=== PATIENT | female | born 1970 | race Caucasian/White ===

== ENCOUNTER 2020-12-18 10:38 | Outpatient (REF) | payer MEDICARE, MEDICAID, SELFPAY ==
[2020-12-19 12:01] LABS: H Pylori Breath Test NOT DETECTED (NOT DETECTED)
== END 2020-12-18 10:39 | disposition home or self-care (01) ==
LOC: HO.LNP 10:38
PROVIDERS: PCP Physician Assistant Medical; Referring Provider Physician Assistant Medical; Visit Provider Physician Assistant
DX: Z01.812 Encounter for preprocedural laboratory examination (principal); E66.01 Morbid (severe) obesity due to excess calories; I10 Essential (primary) hypertension; E03.9 Hypothyroidism, unspecified; I89.0 Lymphedema, not elsewhere classified; F32.9 Major depressive disorder, single episode, unspecified; M79.7 Fibromyalgia; M19.90 Unspecified osteoarthritis, unspecified site; K21.9 Gastro-esophageal reflux disease without esophagitis
CPT/HCPCS: 83013; 99202; 99211

== ENCOUNTER → 2021-01-24 08:10 | Outpatient (BNVA) | payer MEDICARE, MEDICAID, SELFPAY | PROVIDERS: PCP Physician Assistant Medical; Visit Provider Dietitian, Registered | DX: E66.01 Morbid (severe) obesity due to excess calories (principal) | CPT/HCPCS: 97802 ==

== ENCOUNTER → 2021-02-09 14:55 | Outpatient (BNVA) | payer MEDICARE, MEDICAID, SELFPAY | PROVIDERS: PCP Physician Assistant Medical; Visit Provider Physician Assistant | DX: E66.01 Morbid (severe) obesity due to excess calories (principal); Z68.43 Body mass index [BMI] 50.0-59.9, adult | CPT/HCPCS: 99212 ==

== ENCOUNTER 2021-03-06 09:50 | Outpatient (REF) | payer MEDICARE, MEDICAID, SELFPAY ==
--- NOTE | ~2021-03-06 | XR_ITS ---
EXAMINATION: XR CHEST CLINICAL INFORMATION: Encounter for preprocedural laboratory examination COMPARISON: Chest x-ray 09/13/2006, dictated report. Images not available for review. TECHNIQUE: 2 views of the chest were obtained. FINDINGS: No significant abnormality is noted involving the heart, lungs, mediastinum, bony thorax or soft tissues. XR/XR chest 2V IMPRESSION: Unremarkable examination.
--- NOTE | 2021-03-06 09:58 | ECG_ITS ---
Test Reason : preop Blood Pressure : / mmHG Vent. Rate : 075 BPM Atrial Rate : 075 BPM P-R Int : 164 ms QRS Dur : 088 ms QT Int : 408 ms P-R-T Axes : 043 031 051 degrees QTc Int : 455 ms Normal sinus rhythm Nonspecific T wave abnormality Inferior leads Lateral leads Abnormal ECG No previous ECGs available Referred By: Fatmata Alves Electronically Signed By:MARLEEN LOYA MD
[2021-03-06 10:26] LABS: MANUAL DIFF FLAG NO
[2021-03-06 10:50] LABS: Basophils Absolute Auto 0.1 X10*3/uL (0.0-0.2); Eosinophils Absolute Auto 0.2 X10*3/uL (0.0-0.4); Eosinophils Percent Auto 2.7 % (0-4); Hematocrit 38.8 % (37.0-47.0); Hemoglobin 12.8 g/dl (12.0-16.0); Imm Gran Abs Auto 0.01 X10*3/uL (0.00-0.03); Imm Gran Pct Auto 0.1 % (0.0-0.4); Lymphocytes Absolute Auto 2.1 X10*3/uL (1.2-4.9); Lymphocytes Percent Auto 29.2 % (20-40); Mean Corpuscular Hemoglobin 29.6 pg (27.0-33.0); Mean Corpuscular Volume 89.8 fL (80.0-98.0); Mean Platelet Volume 8.8 fL (9.4-12.3); Monocytes Absolute Auto 0.4 X10*3/uL (0.1-1.2); Monocytes Percent Auto 5.3 % (2-11); Neutrophils Absolute Auto 4.4 x10*3/uL (2.0-8.3); Neutrophils Percent Auto 61.7 % (45-73); Platelet Count 325 X10*3/uL (160-400); Red Blood Count 4.32 X10*6/uL (4.20-5.50); Red Cell Distribution Width 13.4 % (11.0-16.0); White Blood Count 7.2 X10*3/uL (4.8-10.8)
[2021-03-06 10:59] LABS: Estimated Average Glucose 123 mg/dL; Hemoglobin A1C 132.3317 umol/L; Hemoglobin A1c % 5.9 %
[2021-03-06 11:18] LABS: Alanine Aminotransferase 25 U/L (0-31); Albumin Level 4.3 g/dL (3.5-5.0); Alkaline Phosphatase 69 U/L (39-117); Anion Gap 14 (12-20); Aspartate Amino Transferase 19 U/L (5-31); Bilirubin Total 0.3 mg/dL (0.0-1.0); Blood Urea Nitrogen 12 mg/dL (9-16); C Reactive Protein 0.71 mg/dL (< or = 0.50); Calcium 9.4 mg/dL (8.4-10.2); Carbon Dioxide 27 mmol/L (22-29); Chloride 101 mmol/L (96-108); Cholesterol 279 mg/dL; Estimated Glomerular Filt Rate > 60; Glucose Random 103 mg/dL (60-115); HDL Cholesterol 43 mg/dL; Iron 60 mcg/dL (30-160); LDL Cholesterol Calculated 187 mg/dl; Percent Iron Saturation 15 % (15-50); Potassium 4.6 mmol/L (3.3-5.1); Sodium 137 mmol/L (135-145); Total Iron Binding Capacity 404 mcg/dL (228-428); Total Protein 7.1 g/dL (6.5-8.0); Triglycerides 245 mg/dL; Unsaturated Iron Binding 344 ug/dL
[2021-03-06 11:27] LABS: Insulin 12 uU/mL (2-29)
[2021-03-06 11:33] LABS: Ferritin 57 ng/mL (10-250); TSH reflex Free T4 12.92 uIU/mL (0.32-4.0); Vitamin D 25-OH Total 37.1 ng/mL (>30)
[2021-03-06 14:45] LABS: Folate 18.3 ng/mL (> or = 4.0); Vitamin B12 677 pg/mL (200-900)
[2021-03-08 02:57] LABS: Calcium (PTHI) 9.5 mg/dL (8.6-10.2); PTHI 45 pg/mL (14-64)
[2021-03-09 14:11] LABS: Zinc 71 mcg/dL (60-130)
[2021-03-10 11:11] LABS: Vitamin B1 25 nmol/L (8-30)
[2021-03-12 03:31] LABS: Vitamin A 59 mcg/dL (38-98)
== END 2021-03-06 09:51 | disposition home or self-care (01) ==
LOC: HO.XRAY 09:50
PROVIDERS: Visit Provider Physician Assistant
DX: Z01.812 Encounter for preprocedural laboratory examination (principal); E66.01 Morbid (severe) obesity due to excess calories
CPT/HCPCS: 36415; 71046; 80053; 80061; 82306; 82607; 82728; 82746; 83036; 83525; 83540; 83970; 84425; 84439; 84443; 84590; 84630; 85025; 86140; 93005

== ENCOUNTER → 2021-03-09 08:11 | Outpatient (BNVA) | payer MEDICARE, MEDICAID, SELFPAY | PROVIDERS: PCP Physician Assistant Medical; Visit Provider Physician Assistant | DX: Z13.89 Encounter for screening for other disorder (principal) | CPT/HCPCS: Q3014 ==

== ENCOUNTER → 2021-07-16 11:04 | Outpatient (BNVA) | payer MEDICARE, MEDICAID, SELFPAY | PROVIDERS: PCP Physician Assistant Medical; Visit Provider Physician Assistant | DX: E66.01 Morbid (severe) obesity due to excess calories (principal); K21.9 Gastro-esophageal reflux disease without esophagitis; I10 Essential (primary) hypertension; E03.9 Hypothyroidism, unspecified; M79.7 Fibromyalgia; I89.0 Lymphedema, not elsewhere classified; R94.31 Abnormal electrocardiogram [ECG] [EKG]; R63.2 Polyphagia; Z68.43 Body mass index [BMI] 50.0-59.9, adult | CPT/HCPCS: 99212; Q3014 ==

== ENCOUNTER → 2021-08-07 15:30 | Outpatient (BNVA) | payer MEDICARE, MEDICAID, SELFPAY | PROVIDERS: PCP Physician Assistant Medical; Visit Provider Counselor Mental Health | DX: F32.0 Major depressive disorder, single episode, mild (principal); F50.81 Binge eating disorder | CPT/HCPCS: 90834 ==

== ENCOUNTER 2024-02-22 15:50 | Emergency (ER) | payer OTHER, SELFPAY ==
[2024-02-22 15:52] VITALS: BP 146/46; PULSE 90; RESP 18; TEMP 36.2; O2SAT 95; BMI 53.5
--- NOTE | 2024-02-22 15:54 | ED.GENADULT ---
HPI - General Adult General Chief complaint: Ear Problems Stated complaint: LT ear pain, headache Time Seen by Provider: 02/22/24 16:04 Source: patient and RN notes reviewed Mode of arrival: ambulatory Limitations: no limitations History of Present Illness ED Provider: Daphney Gong PA-C HPI narrative: This is a 53-year-old female, with a history of hypothyroidism, hypertension, who presents emergency department with complaints of left ear pain x4 days. Patient reports that she has a history of ear infections with perforation and symptoms feel similar. No recent swimming. Reports drainage to her left ear as well as decreased hearing from the left ear. No fevers, chills, chest pain, shortness breath, abdominal pain, nausea, vomiting or diarrhea. No other complaints or concerns at this time. MD complaint: Left ear pain Onset (ago): day(s) Radiation: non-radiation Quality: aching Pain Consistency: constant Relieving factors: none Exacerbating factors: none Associated symptoms: denies other symptoms Treatments prior to arrival: none Related Data Home Medications ?Medication ?Instructions ?Recorded ?Confirmed cetirizine 10 mg tablet 10 mg PO DAILY PRN 09/04/20 07/16/21 duloxetine 30 mg capsule,delayed 30 mg PO DAILY 09/04/20 07/16/21 release duloxetine 60 mg capsule,delayed 60 mg PO DAILY 09/04/20 07/16/21 release gabapentin 600 mg tablet 600 mg PO BID 09/04/20 07/16/21 tramadol 50 mg tablet 50 mg PO BID PRN 09/04/20 07/16/21 valsartan 40 mg tablet 20 mg PO DAILY 09/04/20 07/16/21 cholecalciferol (vitamin D3) 125 125 mcg PO DAILY 12/18/20 07/16/21 mcg (5,000 unit) capsule levothyroxine 200 mcg tablet mcg PO 12/18/20 07/16/21 metformin 500 mg tablet,extended 500 mg PO DAILY 02/09/21 07/16/21 release 24 hr multivitamin 1 tab PO DAILY 07/16/21 07/16/21 Previous Rx's ?Medication ?Instructions ?Recorded amoxicillin 875 mg tablet 875 mg PO BID 7 days #14 tabs 02/22/24 ofloxacin 0.3 % ear drops 10 drp otic (ears) DAILY 7 days 02/22/24 #10 mL Allergies Allergy/AdvReac Type Severity Reaction Status Date / Time latex [LATEX] Allergy Mild RASH Verified 02/22/24 15:54 Sulfa (Sulfonamide Allergy Unknown ANAPHYLAXIS Verified 02/22/24 15:54 Antibiotics) [SULFA (SULFONAMIDE ANTIBIOTICS)] Review of Systems Review of Systems: Yes all other systems are reviewed and are negative Constitutional: Constitutional: Reports as per [facility] Past Medical History Attestation statement: The following information was validated with the patient. Medical History Gastric peptic ulcer Pancreatitis Gastroparesis Lyme disease Surgical History History of laparoscopic cholecystectomy Hx of neck surgery Hx of colonoscopy History of tonsillectomy and adenoidectomy Family History Family History Mother No problems noted. Father No problems noted. Brother No problems noted. Sister No problems noted. Sister No problems noted. Sister No problems noted. Social History Social History Alcohol intake: current Alcohol intake frequency: holidays/special occasions only Patient Tobacco Use Status: Former Tobacco user Advance Directives: Yes Advance Directives Information Provided: No Advance Directives on File: No Do you have a plan to hurt others: No Plan Physical Exam ED Vital Signs: Vital Signs - 24 hr 02/22/24 15:52 02/22/24 16:11 Temperature 97.1 F 97.1 F Pulse Rate 90 90 Respiratory Rate 18 18 Blood Pressure 146/46 H 146/46 H Pulse Oximetry 95 95 Oxygen Delivery Method Room Air Room Air BMI result Body Mass Index 53.5 Const General: cooperative, comfortable and no acute distress Orientation/consciousness: patient oriented x3 Limitations: no limitations HENMT Other: Left ear: Canal erythema and edema, with purulent discharge noted. TM appears to be intact, slightly erythematous, however full visualization is obscured due to swelling. Patient with tenderness palpation overlying the preauricular lymph nodes. No mastoid tenderness, erythema or fluctuance. Right ear unremarkable Head: Yes normal to inspection, Yes normocephalic and Yes atraumatic Ears: TM normal on the right General nose exam: Normal external nose present Face and sinus: Yes normal facial exam Mouth: Normal oral and palatal mucosa present, oropharynx normal and moist mucous membranes Throat: Yes posterior oropharynx normal Eyes General: appearance normal, both eyes and all related structures Eyelids: Yes eyelids normal Conjunctivae: conjunctivae normal Sclerae: sclerae normal Pupils: Equal, round and reactive pupils present EOM: EOMs intact bilaterally Neck Neck: Yes normal visual inspection, Yes full ROM and Yes no lymphadenopathy Lymphatic: no lymphadenopathy noted Chest Chest palpation & inspection: normal inspection of the chest Resp Effort & Inspection: normal respiratory effort and able to speak in complete sentences Auscultation: clear to auscultation bilaterally, no crackles, no rales, no rhonchi and no wheezes Cardio Rate: regular rate Rhythm: regular rhythm Heart sounds: S1 normal heart sound present and S2 normal heart sound present GI Inspection: Yes normal to inspection Skin General skin exam: no rashes or lesions noted Trauma: no lacerations or abrasions Wounds: no wounds Neuro General: patient oriented x3 and moves all extremities Cranial nerves: Yes Equal, round and reactive pupils present Extrem General: Yes normal to inspection Right upper extremity: normal to inspection Left upper extremity: normal to inspection Right lower extremity: normal to inspection Left lower extremity: normal to inspection Medical Decision Making Medical Decision Making MDM Narrative: This is a 53-year-old female who presents emergency department with complaints of left ear pain x4 days. On arrival, blood pressure mildly elevated 146/46. Patient has evidence of otitis media/otitis externa, will treat with antibiotics oral and topical to treat for both. Patient given strict return precautions. She understands agrees with plan. Patient stable for discharge. Differential Diagnosis Differential Diagnoses: The differential diagnosis associated with the presentation includes Otitis media, externa, cerumen impaction, TM perforation, mastoiditis-unlikely Discharge Plan Discharge Clinical Impression: Acute otitis externa of left ear Patient Disposition: Home, Self-Care Instructions: Otitis Externa (ED) Additional Instructions: You were seen in the emergency department due to left ear pain. You have evidence of an ear infection. Please take prescribed antibiotic as directed. Finish the entire course even if your symptoms improve. I am also putting you on topical ear drops to also help with your symptoms. Please use as prescribed. If any new or worsening symptoms occur including but not limited to worsening pain, swelling, severe headache, dizziness, chest pain, please seek emergent care Prescriptions: New amoxicillin 875 mg tablet 875 mg PO BID 7 Days Qty: 14 0RF ofloxacin 0.3 % drops 10 drp otic (ears) DAILY 7 Days Qty: 10 0RF No Action gabapentin 600 mg tablet 600 mg PO BID tramadol 50 mg tablet 50 mg PO BID PRN valsartan 40 mg tablet 20 mg PO DAILY duloxetine 30 mg capsule,delayed release(DR/EC) 30 mg PO DAILY duloxetine 60 mg capsule,delayed release(DR/EC) 60 mg PO DAILY cetirizine 10 mg tablet 10 mg PO DAILY PRN levothyroxine 200 mcg tablet PO cholecalciferol (vitamin D3) 125 mcg (5,000 unit) capsule 125 mcg PO DAILY metformin 500 mg tablet extended release 24 hr 500 mg PO DAILY multivitamin Tablet 1 tab PO DAILY Interventions: ED Discharge Assessment Last Done: 02/22/24 16:11 Discharge Date/Time: 02/22/24 16:12 Print Language: Panamanian
[2024-02-22 16:11] VITALS: BP 146/46; PULSE 90; RESP 18; TEMP 36.2; O2SAT 95
== END 2024-02-22 16:12 | disposition home or self-care (01) ==
PROVIDERS: Emergency Provider Emergency Medicine Emergency Medical Services; PCP Physician Assistant Medical
DX: H60.502 Unspecified acute noninfective otitis externa, left ear (principal); H92.02 Otalgia, left ear; R51.9 Headache, unspecified; I10 Essential (primary) hypertension; Z79.899 Other long term (current) drug therapy; Z87.891 Personal history of nicotine dependence
CPT/HCPCS: 99282

== ENCOUNTER 2024-04-09 14:19 | Emergency (ER) | payer OTHER, SELFPAY ==
[2024-04-09 14:26] VITALS: BP 154/66; PULSE 80; RESP 20; TEMP 36.2; O2SAT 99; BMI 52.3
--- NOTE | 2024-04-09 14:27 | ED.GENADULT ---
HPI - General Adult General Chief complaint: Upper Respiratory Symptoms Stated complaint: swollen glands, sore throat Time Seen by Provider: 04/09/24 16:58 Source: patient Mode of arrival: ambulatory Limitations: no limitations History of Present Illness ED Provider: Maribel Tiwari PA-C HPI narrative: Patient is a 53 year old assigned female at with a history of GERD, HTN, and fibromyalgia presenting to the emergency department today with a sore throat and feeling generally unwell. Patient states that over the last 5 days she has felt generally unwell with a sore throat. Patient states that she does not have any tonsils. Patient denies any dizziness, lightheadedness, abdominal pain, nausea, vomiting, fever, chills, blurry vision, double vision, loss of vision, chest pain, difficulty breathing, shortness of breath, back pain, night sweats, pain with urination, increased urinary frequency, increased urinary urgency, blood in her urine or stool, syncope or a near syncopal episode, recent trauma or falls, bowel incontinence, bladder incontinence, or any other complaints at this time. Onset (ago): day(s) (5) Relieving factors: none Exacerbating factors: none Associated symptoms: denies other symptoms Treatments prior to arrival: none Related Data Home Medications ?Medication ?Instructions ?Recorded ?Confirmed cetirizine 10 mg tablet 10 mg PO DAILY PRN 09/04/20 07/16/21 duloxetine 30 mg capsule,delayed 30 mg PO DAILY 09/04/20 07/16/21 release duloxetine 60 mg capsule,delayed 60 mg PO DAILY 09/04/20 07/16/21 release gabapentin 600 mg tablet 600 mg PO BID 09/04/20 07/16/21 tramadol 50 mg tablet 50 mg PO BID PRN 09/04/20 07/16/21 valsartan 40 mg tablet 20 mg PO DAILY 09/04/20 07/16/21 cholecalciferol (vitamin D3) 125 125 mcg PO DAILY 12/18/20 07/16/21 mcg (5,000 unit) capsule levothyroxine 200 mcg tablet mcg PO 12/18/20 07/16/21 metformin 500 mg tablet,extended 500 mg PO DAILY 02/09/21 07/16/21 release 24 hr multivitamin 1 tab PO DAILY 07/16/21 07/16/21 Previous Rx's ?Medication ?Instructions ?Recorded amoxicillin 875 mg tablet 875 mg PO BID 7 days #14 tabs 02/22/24 ofloxacin 0.3 % ear drops 10 drp otic (ears) DAILY 7 days 02/22/24 #10 mL Allergies Allergy/AdvReac Type Severity Reaction Status Date / Time latex [LATEX] Allergy Mild RASH Verified 04/09/24 14:28 Sulfa (Sulfonamide Allergy Unknown ANAPHYLAXIS Verified 04/09/24 14:28 Antibiotics) [SULFA (SULFONAMIDE ANTIBIOTICS)] Review of Systems Constitutional: Constitutional: Reports no additional constitutional complaints, Denies chills, Denies fever(s) and Denies night sweats Eyes: Eyes: Reports no additional eye complaints, Denies blurry vision, Denies change in vision, Denies diplopia, Denies eye discharge, Denies loss of vision and Denies eye pain ENT: Denies dizziness and Reports sore throat Cardiovascular: Cardiovascular: Reports no additional cardiovascular complaints, Denies chest pain, Denies lightheadedness, Denies Loss of Consciousness and Denies dyspnea Respiratory: Respiratory: Reports no additional respiratory complaints and Denies dyspnea Gastrointestinal: Gastrointestinal: Reports no additional gastrointestinal complaints, Denies abdominal pain, Denies melena, Denies hematochezia, Denies change in bowel habits and Denies change in stool character Genitourinary: Genitourinary: Denies hematuria, Denies urinary frequency, Denies dysuria, Denies urinary incontinence, Denies urinary hesitancy and Denies urinary urgency Musculoskeletal: Musculoskeletal: Reports no additional musculoskeletal complaints, Denies numbness and Denies tingling Neurologic: Denies dizziness, Denies loss of vision, Denies numbness and Denies tingling Psychiatric: Psychiatric: Reports no additional psychiatric complaints Endocrine: Endocrine: Reports no additional endocrine complaints Hematologic/Lymphatic: Hematologic/Lymphatic: Reports no additional hematologic/lymphatic complaints Allergic/Immunologic: Allergic/Immunologic: Reports no additional allergic/immunologic complaints [facility] Past Medical History Attestation statement: The following information was validated with the patient. Source: old records reviewed and nursing notes reviewed Medical History Gastric peptic ulcer Pancreatitis Gastroparesis Lyme disease Surgical History History of laparoscopic cholecystectomy Hx of neck surgery Hx of colonoscopy History of tonsillectomy and adenoidectomy Family History Family History Mother No problems noted. Father No problems noted. Brother No problems noted. Sister No problems noted. Sister No problems noted. Sister No problems noted. Social History Social History Alcohol intake: current Alcohol intake frequency: holidays/special occasions only Patient Tobacco Use Status: Former Tobacco user Advance Directives: No Advance Directives Information Provided: No Physical Exam ED Vital Signs: Vital Signs - 24 hr 04/09/24 14:26 04/09/24 16:00 04/09/24 17:42 Temperature 97.1 F 98.1 F 98.1 F Pulse Rate 80 77 77 Respiratory Rate 20 16 16 Blood Pressure 154/66 H 126/61 126/61 Pulse Oximetry 99 98 98 Oxygen Delivery Method Room Air Room Air Room Air BMI result Body Mass Index 52.3 Const General: cooperative, no acute distress, alert and awake Nutritional Appearance: well nourished Orientation/consciousness: patient oriented x3 Limitations: no limitations HENMT Head: Yes normal to inspection and Yes atraumatic Ears: hearing grossly normal bilaterally and external ears normal General nose exam: Normal external nose present, no nasal discharge noted and no epistaxis Face and sinus: Yes normal facial exam, No abrasion and No laceration Mouth: Normal oral and palatal mucosa present, no drooling and no muffled voice Eyes General: appearance normal, both eyes and all related structures Periorbital: periorbital findings normal Eyelids: Yes eyelids normal Conjunctivae: conjunctivae normal Pupils: Equal, round and reactive pupils present EOM: EOMs intact bilaterally Neck Neck: Yes normal visual inspection, Yes full ROM and Yes no lymphadenopathy Chest Chest palpation & inspection: normal inspection of the chest Resp Effort & Inspection: normal respiratory effort and able to speak in complete sentences GI Inspection: Yes normal to inspection Neuro General: patient oriented x3 and moves all extremities Cranial nerves: Yes Equal, round and reactive pupils present Cognition (Neuro): normal cognition Extrem General: Yes normal to inspection, Yes full ROM and Yes capillary refill normal Psych Appearance: grossly normal Mental Status: mental status grossly normal Affect: normal affect Attitude: cooperative Thought process: Normal thought process present Thought content: Normal thought content present Insight: Good insight present (Psych) Course Course Course Narrative: This is a rapid medical exam performed by Ileana Rodriguez NP: Additional HPI, ROS, PE not included below will be deferred to primary provider. Patient is a 53-year-old female with history of Lyme presenting to the ED with complaint of sore throat, lymphadenopathy for the past 5 days. Pain worse with swallowing. Intermittent fevers, none yesterday and today. Reports frequent lymphadenopathy due to Lyme. Plan: strep and viral serology, labs Medical Decision Making Medical Decision Making [facility] Narrative: Patient is a 53 year old assigned female at with a history of GERD, HTN, and fibromyalgia presenting to the emergency department today with a sore throat and feeling generally unwell. Patient's physical exam was unremarkable. Patient's blood work was unremarkable. I explained my physical exam findings as well as all test results to the patient. I answered all questions asked by the patient. I stressed the importance of the patient taking her medication as directed (either prescribed or as the over the counter packaging recommends). I stressed the importance of the patient following up with her primary care provider. I stressed the importance of the patient returning to the emergency department immediately if her symptoms were to worsen or if she were to develop any dizziness, shortness of breath, difficulty breathing, chest pain, blurry vision, loss of vision, nausea, vomiting, abdominal pain, fever, chills, back pain, or any other complaints. Patient verbalized agreement and understanding with this treatment plan and discharge. Differential Diagnosis Differential Diagnoses: The differential diagnosis associated with the presentation includes Pharyngitis Viral illness COVID-19 Influenza RSV Admission/Observation Consideration of admission/observation: Escalation of care including admission/observation considered Patient would have been admitted to the hospital had his work up had any findings where hospital admission was appropriate and his clinical presentation warranted hospital admission. Lab Data [facility] Lab Attestation statement: I reviewed the patient's lab results. My interpretation of these studies and their corresponding values is that they are grossly normal. 04/09/24 15:06 04/09/24 15:07 Labs: Lab Results 04/09/24 04/09/24 Range/Units 15:06 15:07 WBC 6.7 (4.8-10.8) X10*3/uL RBC 4.73 (4.20-5.50) X10*6/uL Hgb 13.1 (12.0-16.0) g/dl Hct 40.7 (37.0-47.0) % MCV 86.0 (80.0-98.0) fL MCH 27.7 (27.0-33.0) pg MCHC 32.2 (31.0-35.0) g/dl RDW 14.1 (11.0-16.0) % Plt Count 320 (160-400) X10*3/uL MPV 8.8 L (9.4-12.3) fL Immature Gran % (Auto) 0.1 (0.0-0.4) % Neut % (Auto) 61.4 (45-73) % Lymph % (Auto) 29.4 (20-40) % Marion % (Auto) 4.8 (2-11) % Eos % (Auto) 3.4 (0-4) % Baso % (Auto) 0.9 (0-2) % Lymph # (Auto) 2.0 (1.2-4.9) X10*3/uL Marion # (Auto) 0.3 (0.1-1.2) X10*3/uL Eos # (Auto) 0.2 (0.0-0.4) X10*3/uL Baso # (Auto) 0.1 (0.0-0.2) X10*3/uL Abs Immat Gran (auto) 0.01 (0.00-0.03) X10*3/uL Absolute Neuts (auto) 4.1 (2.0-8.3) x10*3/uL Absolute Nucleated RBC 0.000 (0.0-0.012) X10*3/uL Nucleated RBC % (auto) 0.0 (0.0-0.2) /100WBC Sodium 142 (135-145) mmol/L Potassium 4.1 (3.3-5.1) mmol/L Chloride 104 (96-108) mmol/L Carbon Dioxide 30 H (22-29) mmol/L Anion Gap 12 (12-20) BUN 12 (9-16) mg/dL Creatinine 0.88 (0.5-1.4) mg/dL Estim Creat Clear Calc 101.4 Estimated GFR > 60 Random Glucose 94 (60-115) mg/dL Calcium 9.4 (8.4-10.2) mg/dL Total Bilirubin 0.3 (0.0-1.0) mg/dL AST 21 (5-31) U/L ALT 31 (0-31) U/L Alkaline Phosphatase 96 (39-117) U/L Total Protein 7.4 (6.5-8.0) g/dL Albumin 4.2 (3.5-5.0) g/dL Influenza Type A (PCR) NEGATIVE (Negative) Influenza Type B (PCR) NEGATIVE (Negative) RSV RNA Qual (PCR) NEGATIVE (Negative) SARS-CoV-2 RNA (RT-PCR) NEGATIVE (Negative) S. pyogenes GrpA DEMETRIA Negative (Negative) Discharge Plan Discharge Clinical Impression: Pharyngitis, Viral illness Patient Disposition: Home, Self-Care Instructions: Pharyngitis (ED), Viral Syndrome (ED) Additional Instructions: Follow up with your primary care provider. Return to the emergency department immediately if your symptoms worsen or if you develop any dizziness, shortness of breath, difficulty breathing, chest pain, blurry vision, loss of vision, nausea, vomiting, abdominal pain, fever, chills, back pain, or any other complaints. Prescriptions: No Action amoxicillin 875 mg tablet 875 mg PO BID 7 Days Qty: 14 0RF ofloxacin 0.3 % drops 10 drp otic (ears) DAILY 7 Days Qty: 10 0RF gabapentin 600 mg tablet 600 mg PO BID tramadol 50 mg tablet 50 mg PO BID PRN valsartan 40 mg tablet 20 mg PO DAILY duloxetine 30 mg capsule,delayed release(DR/EC) 30 mg PO DAILY duloxetine 60 mg capsule,delayed release(DR/EC) 60 mg PO DAILY cetirizine 10 mg tablet 10 mg PO DAILY PRN levothyroxine 200 mcg tablet PO cholecalciferol (vitamin D3) 125 mcg (5,000 unit) capsule 125 mcg PO DAILY metformin 500 mg tablet extended release 24 hr 500 mg PO DAILY multivitamin Tablet 1 tab PO DAILY Referrals: Chinmay Hoang PA [Primary Care Provider] - Interventions: ED Discharge Assessment Last Done: 04/09/24 17:42 Discharge Date/Time: 04/09/24 17:42 Print Language: Salvadorean
[2024-04-09 15:14] LABS: MANUAL DIFF FLAG NO
[2024-04-09 15:15] LABS: Basophils Absolute Auto 0.1 X10*3/uL (0.0-0.2); Basophils Percent Auto 0.9 % (0-2); Eosinophils Absolute Auto 0.2 X10*3/uL (0.0-0.4); Eosinophils Percent Auto 3.4 % (0-4); Hematocrit 40.7 % (37.0-47.0); Hemoglobin 13.1 g/dl (12.0-16.0); Imm Gran Abs Auto 0.01 X10*3/uL (0.00-0.03); Imm Gran Pct Auto 0.1 % (0.0-0.4); Lymphocytes Percent Auto 29.4 % (20-40); Mean Corpuscular HGB Conc 32.2 g/dl (31.0-35.0); Mean Corpuscular Hemoglobin 27.7 pg (27.0-33.0); Mean Platelet Volume 8.8 fL (9.4-12.3); Monocytes Absolute Auto 0.3 X10*3/uL (0.1-1.2); Monocytes Percent Auto 4.8 % (2-11); Neutrophils Absolute Auto 4.1 x10*3/uL (2.0-8.3); Neutrophils Percent Auto 61.4 % (45-73); Platelet Count 320 X10*3/uL (160-400); Red Blood Count 4.73 X10*6/uL (4.20-5.50); Red Cell Distribution Width 14.1 % (11.0-16.0); White Blood Count 6.7 X10*3/uL (4.8-10.8)
[2024-04-09 15:22] LABS: IDNOW Serial# 08D9AD1C; Strep A Nucleic Acid Negative (Negative)
[2024-04-09 15:35] LABS: Albumin Level 4.2 g/dL (3.5-5.0); Anion Gap 12 (12-20); Aspartate Amino Transferase 21 U/L (5-31); Bilirubin Total 0.3 mg/dL (0.0-1.0); Blood Urea Nitrogen 12 mg/dL (9-16); Calcium 9.4 mg/dL (8.4-10.2); Carbon Dioxide 30 mmol/L (22-29); Chloride 104 mmol/L (96-108); Creatinine Clr Calc Pharmacy 101.4; Estimated Glomerular Filt Rate > 60; Glucose Random 94 mg/dL (60-115); Potassium 4.1 mmol/L (3.3-5.1); Sodium 142 mmol/L (135-145); Total Protein 7.4 g/dL (6.5-8.0)
[2024-04-09 15:52] LABS: Influenza A PCR NEGATIVE (Negative); Influenza B PCR NEGATIVE (Negative); Resp Syncy Virus RNA Qual PCR NEGATIVE (Negative); SARS COV2 PCR INHOUSE NEGATIVE (Negative)
[2024-04-09 16:00] VITALS: BP 126/61; PULSE 77; RESP 16; TEMP 36.7; O2SAT 98
[2024-04-09 17:10] LABS: Alanine Aminotransferase 31 U/L (0-31); Alkaline Phosphatase 96 U/L (39-117)
[2024-04-09 17:42] VITALS: BP 126/61; PULSE 77; RESP 16; TEMP 36.7; O2SAT 98
== END 2024-04-09 17:42 | disposition home or self-care (01) ==
PROVIDERS: Registered Nurse Emergency; Emergency Provider Emergency Medicine; PCP Physician Assistant Medical
DX: B34.9 Viral infection, unspecified (principal); J02.9 Acute pharyngitis, unspecified; I10 Essential (primary) hypertension; K21.9 Gastro-esophageal reflux disease without esophagitis; Z79.899 Other long term (current) drug therapy; Z03.818 Encounter for observation for suspected exposure to other biological agents ruled out
CPT/HCPCS: 0241U; 80053; 85025; 87651; 99283

== ENCOUNTER 2024-08-13 15:07 | Emergency (ER) | payer OTHER, SELFPAY ==
--- NOTE | ~2024-08-13 | XR_ITS ---
EXAMINATION: XR FINGERS LEFT HISTORY: swelling pain to left pointer finger COMPARISON: There are no prior studies available for comparison. FINDINGS: Three views of the left index finger are submitted. There is a cyst in the distal scaphoid. There is no fracture or dislocation. The joint spaces are preserved. The soft tissues are unremarkable. XR/XR finger LT min 2V IMPRESSION: No evidence of fracture of the left index finger. Electronically signed by: Amadou Truong MD 08/13/2024 03:58 PM EDT
[2024-08-13 15:24] VITALS: BP 128/50; PULSE 93; RESP 18; TEMP 36.9; O2SAT 95; BMI 54.0
--- NOTE | 2024-08-13 15:28 | ED.EXTPRO ---
HPI - Extremity Problem General Chief complaint: Extremity Problem Stated complaint: L Pointer Finger Pain/ Swelling Time Seen by Provider: 08/13/24 17:55 Source: patient Limitations: no limitations History of Present Illness ED Provider: Francy Munoz PA-C HPI Narrative: 53-year-old female with a history of morbid obesity, alcohol use disorder, depression, osteoarthritis, fibromyalgia, hypertension, who presents with atraumatic swelling and pain to left pointer finger x4 days. Patient was unable to fully flex or extend the digit. Denies associated redness or warmth of the finger, no fevers. Related Data Home Medications ?Medication ?Instructions ?Recorded ?Confirmed cetirizine 10 mg tablet 10 mg PO DAILY PRN 09/04/20 07/16/21 duloxetine 30 mg capsule,delayed 30 mg PO DAILY 09/04/20 07/16/21 release duloxetine 60 mg capsule,delayed 60 mg PO DAILY 09/04/20 07/16/21 release gabapentin 600 mg tablet 600 mg PO BID 09/04/20 07/16/21 tramadol 50 mg tablet 50 mg PO BID PRN 09/04/20 07/16/21 valsartan 40 mg tablet 20 mg PO DAILY 09/04/20 07/16/21 cholecalciferol (vitamin D3) 125 125 mcg PO DAILY 12/18/20 07/16/21 mcg (5,000 unit) capsule levothyroxine 200 mcg tablet mcg PO 12/18/20 07/16/21 metformin 500 mg tablet,extended 500 mg PO DAILY 02/09/21 07/16/21 release 24 hr multivitamin 1 tab PO DAILY 07/16/21 07/16/21 Previous Rx's ?Medication ?Instructions ?Recorded amoxicillin 875 mg tablet 875 mg PO BID 7 days #14 tabs 02/22/24 ofloxacin 0.3 % ear drops 10 drp otic (ears) DAILY 7 days 02/22/24 #10 mL methylprednisolone 4 mg tablets in 4 mg PO QAM #21 ea 08/13/24 a dose pack (Medrol (Daniele)) Allergies Allergy/AdvReac Type Severity Reaction Status Date / Time latex [LATEX] Allergy Mild RASH Verified 08/13/24 15:26 Sulfa (Sulfonamide Allergy Unknown ANAPHYLAXIS Verified 08/13/24 15:26 Antibiotics) [SULFA (SULFONAMIDE ANTIBIOTICS)] Review of Systems Review of Systems: Yes all other systems are reviewed and are negative Constitutional: Constitutional: Denies fatigue and Denies fever(s) Musculoskeletal: Musculoskeletal: Reports arthralgias and Reports joint swelling Endocrine: Endocrine: Denies fatigue [facility] Past Medical History Attestation statement: The following information was validated with the patient. Medical History Gastric peptic ulcer Pancreatitis Gastroparesis Lyme disease Surgical History History of laparoscopic cholecystectomy Hx of neck surgery Hx of colonoscopy History of tonsillectomy and adenoidectomy Family History Family History Mother No problems noted. Father No problems noted. Brother No problems noted. Sister No problems noted. Sister No problems noted. Sister No problems noted. Social History Social History Alcohol intake: current Alcohol intake frequency: holidays/special occasions only Patient Tobacco Use Status: Former Tobacco user Smoked in Last 30 Days: No Use of substances other than those prescribed or required for medical reasons: No Advance Directives: No Advance Directives Information Provided: No Patient : No Physical Exam Vital Signs: Vital Signs: Last Vital Signs Temp 98.2 F 08/13/24 17:56 Pulse 77 08/13/24 17:56 Resp 16 08/13/24 17:56 BP 142/66 H 08/13/24 17:56 Pulse Ox 96 08/13/24 17:56 O2 Del Method Room Air 08/13/24 17:56 BMI result Body Mass Index 54.0 Const: Other: Alert Orientation/consciousness: patient oriented x3 Resp: Effort & Inspection: normal respiratory effort Cardio: Other: Normal peripheral perfusion Skin: Other: Warm dry no rash Neuro: General: patient oriented x3, gait normal, no focal motor deficits and CN's II-XI intact bilaterally Extrem: Other: Patient able to flex and extend from MCP of left 2nd digit, unable to fully flex or extend from PIP and DIP. No overlying erythema, warmth, no fusiform swelling. Psych: Other: Calm cooperative Course Course Course Narrative: This is a Rapid Medical Examination (RME) performed by Ayleen Segura PA-C in triage. Full HPI, ROS, assessment and treatment plan per primary provider in the Main ED. 08/13/24 1528 GEOVANNY Rossi Hx: 53 yo female here for evaluation of atraumatic swelling and pain to left pointer finger x4 days. States her finger is stuck in a bent position, unable to move the finger due to pain. Unable to straighten it. History of arthritis. Has trialed multiple xnip-oyv-gqhfkry medications without relief. Denies known bug bites. No history of IV drug use. No known injury or trauma. PE/vitals: Left pointer finger with noted swelling, stuck in flexion. Unable to bend or extend the finger. No obvious overlying erythema or streaking. No noted bites or lesions. Plan: labs, xrs Consultations Consultation #1: Cash veloz PA-C....... He recommends following up as an outpatient, we should place the finger in a simple finger splint to be worn during the night, during the day, the patient should be encouraged to range the joints of the finger. provide with anti-inflammatories. Time: 18:10 Medical Decision Making Medical Decision Making MDM Narrative: 53-year-old female with a history of morbid obesity, alcohol use disorder, depression, osteoarthritis, fibromyalgia, hypertension, who presents with atraumatic swelling and pain to left pointer finger x4 days. Patient was unable to fully flex or extend the digit. Denies associated redness or warmth of the finger, no fevers. Problem: Alcohol use disorder, arthritis, fibromyalgia, history: Per patient I have considered the following differential diagnoses: Dupuytren contracture, tenosynovitis, trigger finger, cellulitis, purulent cellulitis, fracture, dislocation Plan: Screening labs including inflammatory markers and an x-ray were obtained from triage. I believe this to be either Dupuytren contracture versus trigger finger. There was no overlying erythema or warmth of the joint, no leukocytosis and inflammatory markers are not elevated, less likely to be tenosynovitis. We will reach out to the orthopedic service. Labs: No leukocytosis, not anemic, inflammatory markers are negative, no electrolyte abnormality noted Left hand x-ray:FINDINGS: Three views of the left index finger are submitted. There is a cyst in the distal scaphoid. There is no fracture or dislocation. The joint spaces are preserved. The soft tissues are unremarkable. XR/XR finger LT min 2V IMPRESSION: No evidence of fracture of the left index finger. Lab Data 08/13/24 15:39 08/13/24 15:39 Labs: Lab Results 08/13/24 Range/Units 15:39 WBC 7.2 (4.8-10.8) X10*3/uL RBC 4.49 (4.20-5.50) X10*6/uL Hgb 12.9 (12.0-16.0) g/dl Hct 39.5 (37.0-47.0) % MCV 88.0 (80.0-98.0) fL MCH 28.7 (27.0-33.0) pg MCHC 32.7 (31.0-35.0) g/dl RDW 14.2 (11.0-16.0) % Plt Count 291 (160-400) X10*3/uL MPV 8.7 L (9.4-12.3) fL Immature Gran % (Auto) 0.1 (0.0-0.4) % Neut % (Auto) 61.1 (45-73) % Lymph % (Auto) 29.2 (20-40) % [place] % (Auto) 4.7 (2-11) % Eos % (Auto) 3.6 (0-4) % Baso % (Auto) 1.3 (0-2) % Lymph # (Auto) 2.1 (1.2-4.9) X10*3/uL [place] # (Auto) 0.3 (0.1-1.2) X10*3/uL Eos # (Auto) 0.3 (0.0-0.4) X10*3/uL Baso # (Auto) 0.1 (0.0-0.2) X10*3/uL Abs Immat Gran (auto) 0.01 (0.00-0.03) X10*3/uL Absolute Neuts (auto) 4.4 (2.0-8.3) x10*3/uL Absolute Nucleated RBC 0.000 (0.0-0.012) X10*3/uL Nucleated RBC % (auto) 0.0 (0.0-0.2) /100WBC ESR 15 (0-20) MM/HR Sodium 140 (135-145) mmol/L Potassium 4.1 (3.3-5.1) mmol/L Chloride 104 (96-108) mmol/L Carbon Dioxide 29 (22-29) mmol/L Anion Gap 11 L (12-20) BUN 13 (9-16) mg/dL Creatinine 0.96 (0.5-1.4) mg/dL Estim Creat Clear Calc 98.3 Estimated GFR > 60 Random Glucose 96 (60-115) mg/dL Calcium 9.8 (8.4-10.2) mg/dL Total Bilirubin 0.4 (0.0-1.0) mg/dL AST 19 (5-31) U/L ALT 21 (0-31) U/L Alkaline Phosphatase 103 (39-117) U/L C-Reactive Protein 0.30 (< or = 0.50) mg/dL Total Protein 7.3 (6.5-8.0) g/dL Albumin 4.3 (3.5-5.0) g/dL Discharge Plan Discharge Clinical Impression: Finger pain, left Patient Disposition: Home, Self-Care Additional Instructions: All of your screening labs were normal, there was no abnormality noted on the x-ray. You will need to follow up with the orthopedic service for a definitive diagnosis, you may require surgical intervention. I am providing you with a contact. Keep the splint in place at night. During the day, make many attempts to range the joints of the finger. Use your home meloxicam and the Medrol Dosepak as directed, these are both anti-inflammatories. Make sure to take them both with food. Call Friday to make an appointment. Prescriptions: New methylprednisolone [Medrol (Daniele)] 4 mg tablets,dose pack 4 mg PO QAM Qty: 21 0RF Rx Instructions: Take per package instructions No Action amoxicillin 875 mg tablet 875 mg PO BID 7 Days Qty: 14 0RF ofloxacin 0.3 % drops 10 drp otic (ears) DAILY 7 Days Qty: 10 0RF gabapentin 600 mg tablet 600 mg PO BID tramadol 50 mg tablet 50 mg PO BID PRN valsartan 40 mg tablet 20 mg PO DAILY duloxetine 30 mg capsule,delayed release(DR/EC) 30 mg PO DAILY duloxetine 60 mg capsule,delayed release(DR/EC) 60 mg PO DAILY cetirizine 10 mg tablet 10 mg PO DAILY PRN levothyroxine 200 mcg tablet PO cholecalciferol (vitamin D3) 125 mcg (5,000 unit) capsule 125 mcg PO DAILY metformin 500 mg tablet extended release 24 hr 500 mg PO DAILY multivitamin Tablet 1 tab PO DAILY Referrals: Nacho Alves MD [Physician] - (question trigger finger vs dupuytren's contracture left second finger) Print Language: Czech
[2024-08-13 15:45] LABS: MANUAL DIFF FLAG NO
[2024-08-13 15:47] LABS: Basophils Absolute Auto 0.1 X10*3/uL (0.0-0.2); Basophils Percent Auto 1.3 % (0-2); Eosinophils Absolute Auto 0.3 X10*3/uL (0.0-0.4); Eosinophils Percent Auto 3.6 % (0-4); Hematocrit 39.5 % (37.0-47.0); Hemoglobin 12.9 g/dl (12.0-16.0); Imm Gran Abs Auto 0.01 X10*3/uL (0.00-0.03); Imm Gran Pct Auto 0.1 % (0.0-0.4); Lymphocytes Absolute Auto 2.1 X10*3/uL (1.2-4.9); Lymphocytes Percent Auto 29.2 % (20-40); Mean Corpuscular HGB Conc 32.7 g/dl (31.0-35.0); Mean Corpuscular Hemoglobin 28.7 pg (27.0-33.0); Mean Platelet Volume 8.7 fL (9.4-12.3); Monocytes Absolute Auto 0.3 X10*3/uL (0.1-1.2); Monocytes Percent Auto 4.7 % (2-11); Neutrophils Absolute Auto 4.4 x10*3/uL (2.0-8.3); Neutrophils Percent Auto 61.1 % (45-73); Platelet Count 291 X10*3/uL (160-400); Red Blood Count 4.49 X10*6/uL (4.20-5.50); Red Cell Distribution Width 14.2 % (11.0-16.0); White Blood Count 7.2 X10*3/uL (4.8-10.8)
[2024-08-13 16:06] LABS: Alanine Aminotransferase 21 U/L (0-31); Albumin Level 4.3 g/dL (3.5-5.0); Alkaline Phosphatase 103 U/L (39-117); Anion Gap 11 (12-20); Aspartate Amino Transferase 19 U/L (5-31); Bilirubin Total 0.4 mg/dL (0.0-1.0); Blood Urea Nitrogen 13 mg/dL (9-16); Calcium 9.8 mg/dL (8.4-10.2); Carbon Dioxide 29 mmol/L (22-29); Chloride 104 mmol/L (96-108); Creatinine Clr Calc Pharmacy 98.3; Estimated Glomerular Filt Rate > 60; Glucose Random 96 mg/dL (60-115); Potassium 4.1 mmol/L (3.3-5.1); Sodium 140 mmol/L (135-145); Total Protein 7.3 g/dL (6.5-8.0)
[2024-08-13 16:29] LABS: Erythrocyte Sedimentation Rate 15 MM/HR (0-20)
--- OUTSIDE RECORDS SUMMARY | 2024-08-13 17:50 | XMS_ITS | Referral Summary ---
Author Organization [facility] Address [address] [place] [address] Care Team Providers Care Manufacturing Engineering Manager Name Role Phone Michael Greene Primary Care Provider [phone] Allergies Active Allergy Reactions Criticality Noted Date Comments Latex Rash 08/17/2020 Sulfa (Sulfonamide Antibiotics) Anaphylaxis High Medications cetirizine (ZyrTEC) 10 mg tablet Take 10 mg by mouth daily. 1 Active vitamin D3 25 mcg (1,000 unit) capsule TAKE 1 CAPSULE BY MOUTH ONCE DAILY WITH FOOD FOR 90 DAYS 1 Active diclofenac (VOLTAREN) 1% gel Externally Active DULoxetine DR (CYMBALTA) 60 mg capsule TAKE 1 CAPSULE BY MOUTH ONCE DAILY 60 MG IN THE MORNING AND 30 MG AT BEDTIME 1 Active gabapentin (NEURONTIN) 300 mg capsule TAKE 2 CAPSULES BY MOUTH THREE TIMES DAILY FOR 30 DAYS 1 Active hydrOXYzine HCL (ATARAX) 25 mg tablet TAKE 1 TABLET BY MOUTH THREE TIMES DAILY NEEDED FOR ANXIETY AND ONE TO TWO TABLETS FOR SLEEP NEEDED 1 Active levothyroxine (SYNTHROID, LEVOTHROID) 200 mcg tablet TAKE 1 TABLET BY MOUTH ONCE DAILY FRIDAY THROUGH FRIDAY AND 2 TABLETS ON FRIDAY NEEDS LABWORK DRAWN 0 Active methocarbamoL (ROBAXIN) 750 mg tablet TAKE 2 TABLETS BY MOUTH THREE TIMES DAILY FOR NECK PAIN FOR 5 DAYS 1 Active omeprazole (PriLOSEC) 40 mg capsule Take 1 capsule by mouth daily. Active traMADoL (ULTRAM) 50 mg tablet TAKE 2 TABLETS BY MOUTH EVERY 12 HOURS FOR SEVERE ARTHRITIS PAIN FOR 28 DAYS 1 Active valsartan (DIOVAN) 160 mg tablet 1 Active Social History Tobacco Use Types Packs/Day Years Used Date Smoking Tobacco: Former Smokeless Tobacco: Never Comments:pt quit 14 years ag o Alcohol Use Standard Drinks/Week Comments Yes 0 (1 standard drink = 0.6 oz pur e alcohol) 2 drinks per week Comments Unknown Sex and Gender Information Value Date Recorded Sex Assigned at Not on file Legal Sex Female 4:51 AM EDT Gender Identity Not on file Sexual Orientation Not on file Last Filed Vital Signs Vital Sign Reading Time Taken Comments Blood Pressure 127/86 08/17/2020 3:12 PM EDT Pulse 80 08/17/2020 3:12 PM EDT Temperature - - Respiratory Rate - - Oxygen Saturation - - Inhaled Oxygen Concentration - - Weight 145.1 kg (319 lb 12.8 oz) 08/17/2020 3:12 PM EDT Height 160 cm (5' 3 ) 08/17/2020 3:12 PM EDT Body Mass Index 56.65 08/17/2020 3:12 PM EDT Plan of Treatment Not on file Insurance MEDICARE [facility] Care Teams Manufacturing Engineering Manager Relationship Specialty Start Date End Date Michael Greene [address] [place] [id number] PCP - General Internal Medicine 08/11/20
--- OUTSIDE RECORDS SUMMARY | 2024-08-13 17:50 | XMS_ITS | Clinical Summary ---
Author Organization [employer] Address [address] [place] [address] [address] [place] [address] Care Team Providers Care Conference Planning Manager Name Role Phone PcpAri Unassigned Primary Care Provider U navailable Allergies Active Allergy Reactions Criticality Noted Date Comments Latex Rash Low 08/17/2020 Other reaction(s): dermatitis Sulfa Antibiotics Anaphylaxis High 08/17/2020 Medications acetaminophen- codeine (Tylenol #3) 300-30 MG tabletIndicati ons:Pain, dental,Necroti c tooth TAKE 1 TABLET BY MOUTH EVERY 6 HOURS IF NEEDED FOR SEVERE PAIN FOR UP TO 6 DAYS 12 tablet 3 Active Additional Information Patient not taking.Reported on 06/28/2024 traMADol (Ultram) 50 MG tablet tramadol 50 mg tablet TAKE 2 TABLETS BY MOUTH EVERY 12 HOURS NEEDED FOR SEVERE ARTHRITIS PAIN FOR 28 DAYS 1 Active gabapentin (Neurontin) 300 MG capsule Take 600 mg by mouth 3 times daily. 3 Active valsartan (Diovan) 160 MG tablet TAKE 1 TABLET BY MOUTH ONCE DAILY FOR 90 DAYS 3 Active DULoxetine (Cymbalta) [address] capsule TAKE 1 CAPSULE BY MOUTH ONCE DAILY 60 MG IN THE MORNING AND 30 MG AT BEDTIME 3 Active atorvastatin (Lipitor) 40 MG tablet TAKE 1 TABLET BY MOUTH ONCE DAILY AT BEDTIME FOR 90 DAYS 3 Active cholecalcifero l (Vitamin D-3) 25 MCG (1000 UT) capsule 5,000 Units. 1 Active Trulicity 0.75 MG/0.5ML solution pen-injector INJECT 1 PEN SUBCUTANEOUSLY ONCE A WEEK. DISCONTINUE METFORMIN. 3 Active baclofen (Lioresal) 20 MG tablet Take 1 tablet by mouth every 8 (eight) hours. 7 Active pantoprazole (ProtoNix) 40 MG EC tablet Take 40 mg by mouth in the morning. 3 Active phentermine 15 MG capsule phentermine 15 mg capsule Active ondansetron (Zofran) 8 MG tablet ondansetron HCl 8 mg tablet TAKE 1 TABLET BY MOUTH EVERY 8 HOURS NEEDED FOR NAUSEA AND VOMITING Active omeprazole (PriLOSEC) [address] capsule Take 1 capsule by mouth in the morning. Active ofloxacin (Floxin) 0.3 % otic solution ofloxacin 0.3 % ear drops Active nabumetone (Relafen) 500 MG tablet Take 1 tablet by mouth 2 times daily. Active metFORMIN XR (Glucophage-XR ) 500 MG 24 hr tablet metformin ER 500 mg tablet,extended release 24 hr 1 Active meloxicam (Mobic) 15 MG tablet TAKE 1 TABLET BY MOUTH ONCE DAILY WITH FOOD FOR PAIN 3 Active levothyroxine (Synthroid, Levoxyl) 200 MCG tablet TAKE ONE TABLET BY MOUTH ONCE DAILY FOR 6 DAYS AND ON THE 7TH DAY, TAKE 2 TABLETS. TAKE ON AN EMPTY STOMACH. AVOID ANTACIS, CALCIUM OR IRON FOR AT LEAST 4 HOURS BEFORE OR 4 HOURS AFTER 3 Active levothyroxine (Synthroid, Levoxyl) 25 MCG tablet TAKE 1 TABLET BY MOUTH ONCE DAILY. TAKE 19474 MCG FOR TOTAL DAILY DOSE OF 225 MCG 2 Active ipratropium (Atrovent) 0.06 % nasal spray 3 times a day. Activ e indomethacin (Indocin) 50 MG capsule Take 1 capsule by mouth if needed each day. Active hydrOXYzine HCl (Atarax) 25 MG tablet hydroxyzine HCl 25 mg tablet 1 Active fluticasone (Flonase) 50 MCG/ACT nasal spray 3 Active DULoxetine (Cymbalta) [address] capsule duloxetine 30 mg capsule,delayed release TAKE 1 CAPSULE BY MOUTH ONCE DAILY Active dicyclomine (Bentyl) 10 MG capsule dicyclomine 10 mg capsule Active cetirizine (ZyrTEC) 10 MG tablet cetirizine 10 mg tablet 1 Active atorvastatin (Lipitor) 20 MG tablet TAKE 1 TABLET BY MOUTH ONCE DAILY FOR 90 DAYS 2 Active Mounjaro 5 MG/0.5ML solution auto-injector INJECT 1 PEN SUBCUTANEOUSLY ONCE A WEEK. STOP OZEMPIC AND START MOUNJARO Active polyethylene glycol, PEG, 3350 (Glycolax) 17 GM/SCOOP powder MIX 17 GRAMS OF POWDER IN 8 OUNCES OF LIQUID AND DRINK ONCE DAILY 4 Active senna-docusate (Shannon-Colace) 8.6-50 MG tablet Take 1 tablet by mouth Once per day. Active Inulin (FIBER CHOICE PO) Take by mouth. Acti ve Active Problems Problem Noted Date Diagnosed Date Hypothyroidism 06/26/2023 HTN (hypertension) 06/26/2023 GERD (gastroesophageal reflux disease) 4 Fibromyositis 06/26/2023 Overview (06/26/2023): DX PMR 09/04 PCOS (polycystic ovarian syndrome) 06/26/2023 Controlled type 2 diabetes m ellitus without complication, without long-term current use of insulin 06/26/2023 Glaucoma suspect of both eyes 06/26/2023 Chorioretinal scar of right eye 06/26/2023 Encounters Date Type Department Care Team Description 06/28/2024 2:30 PM EDT Office Visit [facility] OPTOMETRY [address] [place] [id number] Heidy Jacobs, OD Controlled type 2 diabetes mellitus without complication, without long-term current use of insulin ([facility]) (Primary Dx); Glaucoma suspect of both eyes; Chorioretinal scar of right eye; Anisometropia; Regular astigmatism of both eyes from Last 3 Months Immunizations Name Administration Dates Next Due INFLUENZA VACCINE QUADRIVALE NT RECOMBINANT PRESERVATIVE FREE RIV4 02/11/2020 Influenza Whole 12/22/2008 Influenza injectable quadriv alent preservative free 01/20/2022 Influenza, IIV3, injectable 02/19/2019,1 ,04/28/2014,12/24,01/31/2011,03/01/2010 Influenza, seasonal, injecta ble, preservative free 02/10/2018 Pneumococcal Polysaccharide PPSV23 11/14/2007 Td (adult), unspecified 12/22/2008 Tdap 06/04/2022 Varicella 11/23/2010 Family History Medical History Relation Name Comments Glaucoma Maternal Grandmother Father thick corneas Other Relation Name Status Comments Maternal Grandmother Other Social History Tobacco Use Types Packs/Day Years Used Date Smoking Tobacco: Former Cigarettes Q uit: 2007 Tobacco Cessation:Counseling Given: Not Answered Comments:Started at 11 and quit when she was 24 , started again when she was 34 Comments Unknown Sex and Gender Information Value Date Recorded Sex Assigned at Choose not to disclose 3:09 PM EST Legal Sex Female 5:36 PM EDT Gender Identity Choose not to disclose 3:09 PM EST Sexual Orientation Choose not to disclose 2022 3:09 PM EST Last Filed Vital Signs Vital Sign Reading Time Taken Comments Blood Pressure 124/84 06/28/2024 2:48 PM EDT Pulse - - Temperature 36.3 ??C (97.4 ??F) 07/30/2022 2:55 PM ED T Respiratory Rate - - Oxygen Saturation - - Inhaled Oxygen Concentration - - Weight - - Height - - Body Mass Index - - Plan of Treatment Upcoming Encounters Date Type Department Care Team (Late st Contact Info) Description 08/31/2024 11:30 AM EDT Office Visit [facility] OPTOMETRY [address] [place] [address] Wicho Freeman, OD [address] [place] [address] Health Maintenance Due Date Last Done Comments CT Colonography 1972 Colonoscopy 1972 Colorectal Cancer Screening 1972 Depression Screening 1972 Diabetes: Hemoglobin A1C 1972 FIT DNA/Cologuard 1972 FIT 1972 FOBT 1972 HIV Screening 1972 Lipid Panel 1972 SDOH Screening 1972 Sigmoidoscopy 1972 Diabetes: Foot Exam 1982 Alcohol/Substance Use Screening 1984 Family Planning (PISQ) 10/13/1987 Hepatitis C Screening 1990 Diabetes: Urine Protein Screening 10/13/1991 Hepatitis A Vaccines (1 of 2 - Risk 2-dose series) 10/13/1991 Hepatitis B Vaccines (1 of 3 - 19+ 3-dose series) 10/13/1991 Pap Smear 1993 Cervical Cancer Screening 2002 HPV/Cotest 2002 Pneumococcal Vaccine: 50+ Years (2 of 2 - PCV) 11/13/2008 11/14/2007 Mammogram 2012 Dental Oral Exam 07/06/2020 01/06/2020 Dental Prophylaxis 11/02/2021 05/04/2021, 01/06/2020 Dental X-Ray: Bitewings 05/05/2022 05/04/2021, 01/05 Dental X-Ray: Full Mouth 01/06/2023 01/06/2020 COVID-19 Vaccine ( season) 2023 01/20/2022, 04/04/2021, 09/21/2020, Additional history exists Tobacco Screening 06/30/2025 06/30/2024 Eye Exam 06/28/2026 06/28/2024, 06/19, 06/28/2024, Additional history exists DTaP/Tdap/Td Vaccines (2 - Td or Tdap) 06/04/2032 06/04/2022, 12/22/2008 RSV Patients and Patients Aged 60 years or older (1 - 1-dose 75+ series) 10/13/2047 Zoster Vaccines Completed 11/25/2023, 07/12/2023 Influenza Vaccine Completed 03/24/2024, , 05/01/2023, Additional history exists HIB Vaccines Aged Out No longer eligi ble based on patient's age to complete this topic HPV Vaccines Aged Out No longer eligi ble based on patient's age to complete this topic IPV Vaccines Aged Out No longer eligi ble based on patient's age to complete this topic Meningococcal Vaccine Aged Out No fortino placido eligible based on patient's age to complete this topic RSV under 20 months Aged Out No longe r eligible based on patient's age to complete this topic Rotavirus Vaccines Aged Out No longer eligible based on patient's age to complete this topic Procedures Procedure Name Priority Date/Time Associated Diagnosis Comments PROPHYLAXIS - ADULT Routine 05/04/2021 1 2:00 AM EST BITEWINGS - 4 RADIOGRAPHIC IMAGES Routine 05/04/2021 12:00 AM EST INTRAORAL - COMPLETE SERIES OF RADIOGRAPHIC IMAGES Routine 01/06/2020 12:00 AM EDT COMPREHENSIVE ORAL EVALUATION - NEW OR ESTABLISHED PATIENT Routine 01/06/2020 12:00 AM EDT from Last 3 Months or Most Recently Relevant to Health Maintenance Insurance [facility] [address] [id number] [facility] ONE CARE < 65 * Guarantor: Britt Martins Account Type Relation to Patient Date of Phone Billing Address [place] [address] Care Teams Conference Planning Manager Relationship Specialty Start Date End Date PcpAri Unassigned PCP - General Family Medicine 08/19/22
--- OUTSIDE RECORDS SUMMARY | 2024-08-13 17:50 | XMS_ITS | Clinical Summary ---
Author Organization [facility] Address [address] [place] [address] Care Team Providers Care Sleeve Machine Tender Name Role Phone Michael Greene Primary Care Provider [phone] Allergies Active Allergy Reactions Criticality Noted Date [...] 08/17/2020 3:12 PM EDT Plan of Treatment Health Maintenance Due Date Last Done Comments Cervical Cancer Screening 1972 Cologuard 1972 Colon Cancer Screening 1972 Colonoscopy 1972 FOBT / Fit Test 1972 HIV Screening 1972 HPV and Pap Smear 1972 Pap Smear 1972 Sigmoidoscopy 1972 Hepatitis B Vaccines (1 of 3 - 19+ 3-dose series) 10/13/1991 DTaP,Tdap,and Td Vaccines (1 - Tdap) 1994 Pneumococcal Vaccine: 50+ Ye ars (1 of 1 - PCV) 2022 Zoster Vaccines (1 of 2) 2022 COVID-19 Vaccine (1 - 2023- season) 2023 Alcohol/Substance Use Screening 04/21/2024 Influenza Vaccine (Season Ended) 2024 02/11/20 20, 02/10/2018 RSV Vaccine (60+ years old a nd patients) (1 - 1-dose 75+ series) 10/13/2047 Insurance MEDICARE [facility] Care Teams Sleeve Machine Tender Relationship Specialty Start Date End Date Michael Greene [address] [place] [id number] PCP - General Internal Medicine 08/11/20
[2024-08-13 17:56] VITALS: BP 142/66; PULSE 77; RESP 16; TEMP 36.8; O2SAT 96
--- NOTE | 2024-08-13 18:30 | PC.NURSE ---
patient a&ox3, vss, pt xray previously performed, provider applied splint, pt to discharge when paperwork available.
[2024-08-13 18:47] VITALS: BP 142/66; PULSE 77; RESP 16; TEMP 36.8; O2SAT 96
== END 2024-08-13 18:48 | disposition home or self-care (01) ==
PROVIDERS: Physician Assistant Medical; Emergency Provider Emergency Medicine
DX: M79.645 Pain in left finger(s) (principal)
CPT/HCPCS: 36415; 73140; 80053; 85025; 85652; 86140; 99283; 99284

== ENCOUNTER → 2024-08-13 15:25 | Outpatient (BNV) | payer OTHER, SELFPAY | PROVIDERS: Visit Provider Radiology Diagnostic Radiology | DX: M79.645 Pain in left finger(s) (principal); R22.32 Localized swelling, mass and lump, left upper limb | CPT/HCPCS: 73140 ==

== ENCOUNTER 2024-09-30 13:09 | Outpatient (AMB) | payer OTHER, SELFPAY ==
[2024-09-30 13:12] VITALS: BMI 53.9
--- NOTE | 2024-09-30 13:12 | A.OFFVIS_ITS ---
Vital Signs 09/30/24 13:12 Height 5 ft 4 in Weight 314 lb BMI 53.9 Intake Visit Reasons: ED F/U: LT IF swelling/pain Intake Note: Britt is a 53 year old right hand dominant female who presents today for an emergency department follow up for her left 2nd digit pain and swelling. Patient was unable to fully flex or extend the digit, Denies associated redness or warmth of the finger. Patient reported that her pointer finger was/is stuck in a bent position, unable to move the finger due to pain/Unable to straighten it. Patient reports she tried to use an over the counter finger splint but no relief. Patient states when she makes a fist she has numbness. History of arthritis. patient reported that she Has trialled multiple [id number] medications without relief. Allergies latex [LATEX] Allergy (Mild, Verified 09/30/24 13:17) RASH Sulfa (Sulfonamide Antibiotics) [SULFA (SULFONAMIDE ANTIBIOTICS)] Allergy (Unknown, Verified 09/30/24 13:17) ANAPHYLAXIS HPI HPI ED F/U: LT IF swelling/pain: Details: Britt is a 53 year old right hand dominant female who presents today for an emergency department follow up for her left 2nd digit pain and swelling. Patient was unable to fully flex or extend the digit, Denies associated redness or warmth of the finger. Patient reported that her pointer finger was/is stuck in a bent position, unable to move the finger due to pain/Unable to straighten it. Now, the patient states that there is no further locking or catching of the finger, but states she has significant pain on the volar aspect of the hand, primarily at the level of the A1 ej. Patient reports she tried to use an over the counter finger splint but no relief. Patient states when she makes a fist she has numbness. History of arthritis. patient reported that she Has trialled multiple [id number]-wna-emoybkt medications without relief. [facility] Medical History Gastric peptic ulcer Pancreatitis Gastroparesis Lyme disease Surgical History History of laparoscopic cholecystectomy Hx of neck surgery Hx of colonoscopy History of tonsillectomy and adenoidectomy Family History Mother No problems noted. Father No problems noted. Brother No problems noted. Sister No problems noted. Sister No problems noted. Sister No problems noted. Social History Alcohol intake: current Alcohol intake frequency: holidays/special occasions only Patient Tobacco Use Status: Former Tobacco user Review of Systems Const All systems reviewed & are unremarkable except as noted in HPI and below Physical Exam Vital Signs: BMI result Body Mass Index 53.9 Extrem Other: Patient is alert, oriented, and in no acute distress. Neuro: Normal sensation of the tips of all digits of the left hand at this time Vascular: Cap refill brisk Pain: Tenderness to palpation of the A1 ej of the left index finger Pain in the index finger flexor tendon with flexion and extension of the left index finger No other tenderness to palpation or pain with range of motion noted ROM: Patient is able to flex and extend all digits of the left hand fully, but rep orts pain in the left index finger when doing so Skin: No lacerations or abrasions. General: No ecchymosis, erythema, or evidence of infection. Psych: Appears grossly normal Affect normal Attitude cooperative Office Procedures AMB Tendon Injection Tendon Injection [id number] Tendon Sheath Injection All charges added?: Procedure code (CPT) selection complete Assessment & Plan Assessment & Plan (1) Tenosynovitis of finger: Code(s): M65.949 - Unspecified synovitis and tenosynovitis, unspecified hand Category: Medical Plan 1. Left index finger pre trigger tenosynovitis Patient is educated about this condition Patient is educated about the treatment options available Would like to proceed with steroid injection at this time The risks and benefits of a steroid injection including but not limited to risk of damage to blood vessels, nerves, tendons, infection, skin bleaching, failure to improve symptoms, increased pain, and possible need for further injections or other intervention were discussed with the patient and the patient wishes to proceed with the steroid injection. Once consent was obtained, I sterilely prepped the area over the A1 ej of the flexor tendon sheath of the left index finger. I then injected the flexor tendon sheath with a combination of 1 mL of dexamethasone (4mg/ml), and 1% lidocaine. The patient tolerated the procedure well with no complications. If the patient continues to have locking and catching 4-6 weeks following this injection, they may call to schedule appointment to discuss alternative treatment options Follow-up prn Coding Level of Care Code New Pt Level 3 (03541) Diagnoses Tenosynovitis of finger M65.949 CPT Codes Tendon Injection - Tendon Injection 1: [id number] Tendon Sheath Injection ([id number])
--- OUTSIDE RECORDS SUMMARY | 2024-09-30 15:19 | XMS_ITS | Encounter Summary ---
Author Organization [employer] Address [address] [place] [address] [address] [place] [address] Care Team Providers Care Glass Technician Name Role Phone Ari Marina Unassigned Primary Care Provider U navailable Encounter Details Date Type Department Care Team (Latest Contact Info) Description 01/06/2020 Abstract [facility] CONVERSIONS Dental, Provider, DDS Social History Tobacco Use Types Packs/Day Years Used Date Smoking Tobacco: Never Assessed Comments Unknown Sex and Gender Information Value Date Recorded Sex Assigned at Choose not to disclose 3:09 PM EST Legal Sex Female 5:36 PM EDT Gender Identity Choose not to disclose 3:09 PM EST Sexual Orientation Choose not to disclose 2022 3:09 PM EST documented as of this encounter Plan of Treatment Not on file documented as of this encounter Visit Diagnoses Not on filedocumented in this encounter Care Teams Glass Technician Relationship Specialty Start Date End Date Ari Marinasscleo PCP - General Family Medicine 08/19/22 documented as of this encounter
== END 2024-09-30 13:43 | disposition home or self-care (01) ==
LOC: HO.HOS 13:09
DX: M65.942 Unspecified synovitis and tenosynovitis, left hand (principal)
CPT/HCPCS: 20550; 99203

== ENCOUNTER → 2024-09-30 13:09 | Outpatient (BNVA) | payer OTHER, SELFPAY | DX: M65.942 Unspecified synovitis and tenosynovitis, left hand (principal); M79.645 Pain in left finger(s) | CPT/HCPCS: 20550; 99202; J1100; J2003 ==

== ENCOUNTER 2025-01-04 15:06 | Outpatient (AMB) | payer OTHER, SELFPAY ==
--- OUTSIDE RECORDS SUMMARY | 2020-11-26 16:45 | XMS_ITS | Encounter Summary ---
Author Organization [facility] Address [address] [facility] [address] [place] [address] Phone Care Team Providers Care Steaming Machine Operator Name Role Phone Nathan Venessa Terry MD Unavailable [phone] Bianca Best MD Unavailable Nam Logan MD Unavailable Michael Greene MD Primary Care Provider [phone] Encounter Details Date Type Department Care Team (Late st Contact Info) Description 11/26/2020 4:45 PM EDT Hospital Encounter [facility] [address] [place] [address] Megan Cabrera, SUPERVISOR PHOSPHATIC FERTILIZER [address] [place] [address] [email or web address] Social History Tobacco Use Types [...] IMPRESSION: No acute fracture or dislocation. us Megan Cabrera SUPERVISOR PHOSPHATIC FERTILIZER IMG XR LOWER EXTREMITY Fi nal Result documented in this encounter Visit Diagnoses Not on filedocumented in this encounter Care Teams Steaming Machine Operator Relationship Specialty Start Date End Date Michael Greene MD [address] [place] [address] PCP - General Internal Medicine 09/21/19 Venessa Evans MD [address] [place] [address] Historical LMR Provider 02/08/17 2 Bianca Best MD [address] [facility], [address] [place] [address] Historical LMR Provider 02/08/1704/28 Nam Logan MD [address] [facility] [place] [address] Historical LMR Provider 02/08/17 04/28/21 documented as of this encounter Additional Source Comments The information contained in this document represents components of the legal health record. It is not the complete legal health record.[facility]
[2025-01-04 15:10] VITALS: BMI 53.9
--- NOTE | 2025-01-04 15:10 | A.OFFVIS_ITS ---
Vital Signs 01/04/25 15:10 Height 5 ft 4 in Weight 314 lb BMI 53.9 Intake Visit Reasons: OV- LT IF swelling/pain last inj 09/30/24 Intake Note: Britt is a 54 year old right hand dominant female who presents today for a Left Index Finger Pre-Trigger Tenosynovitis follow up. She was given a Left Index Trigger Finger injection at her last visit on 09/30/24. Patient reports her injection did not provide her any relief. She wishes to discuss other options today. Allergies latex (LATEX) Allergy (Mild, Verified 01/04/25 15:13) RASH Sulfa (Sulfonamide Antibiotics) (SULFA (SULFONAMIDE ANTIBIOTICS)) Allergy (Unknown, Verified 01/04/25 15:13) ANAPHYLAXIS HPI HPI OV- LT IF swelling/pain last inj 09/30/24: Details: Britt is a 54 year old right hand dominant female who presents today for a Left Index Finger Pre-Trigger Tenosynovitis follow up. She was given a Left Index Trigger Finger injection at her last visit on 09/30/24. Patient reports her injection did not provide her any relief. She wishes to discuss other options today. PENDING SALE TO [facility] Medical History Gastric peptic ulcer Pancreatitis Gastroparesis Lyme disease Surgical History History of laparoscopic cholecystectomy Hx of neck surgery Hx of colonoscopy History of tonsillectomy and adenoidectomy Family History Mother No problems noted. Father No problems noted. Brother No problems noted. Sister No problems noted. Sister No problems noted. Sister No problems noted. Social History Alcohol intake: current Alcohol intake frequency: holidays/special occasions only Patient Tobacco Use Status: Former Tobacco user Review of Systems Const All systems reviewed & are unremarkable except as noted in HPI and below Physical Exam Vital Signs: BMI result Body Mass Index 53.9 Extrem Other: Patient is alert, oriented, and in no acute distress. Neuro: Normal sensation of the tips of all digits of the left hand at this time Vascular: Cap refill brisk Pain: Tenderness to palpation of the A1 ej of the left index finger Pain in the index finger flexor tendon with flexion and extension of the left index finger No other tenderness to palpation or pain with range of motion noted ROM: Patient is able to flex and extend all digits of the left hand fully, but reports pain in the left index finger when doing so Skin: No lacerations or abrasions. General: No ecchymosis, erythema, or evidence of infection. Psych: Appears grossly normal Affect normal Attitude cooperative Assessment & Plan Assessment & Plan (1) Tenosynovitis of finger: Code(s): M65.949 - Unspecified synovitis and tenosynovitis, unspecified hand Category: Medical (2) Stiffness of finger joint of left hand: Code(s): M25.642 - Stiffness of left hand, not elsewhere classified Category: Medical Plan 1. Pre trigger tenosynovitis of the left index finger I educated the patient about the condition. I discussed both operative and nonoperative treatment options. The patient would like to proceed with surgery. The risks and benefits of operative treatment were discussed with the patient and the patient wishes to proceed with surgery. These risks include, but are not limited to, risk of damage to blood vessels, nerves, tendons, infection, r ecurrence, incomplete relief of preoperative symptoms, persistent pain, possible need for further surgery, and the risks associated with regional blocks and/or anesthesia. Plan is to take the patient to the operating room at some point in the next few weeks for the following procedures: 1. Left index finger trigger release under local All of the preoperative paperwork including the consent was discussed today. All of the patient's questions were answered in the clinic today. The patient understands that they will be in contact with our operating room surgical technologist to discuss scheduling their procedure. Patient denies diabetes, blood thinners, asthma, heart issues, lung issues, kidney issues, or current smoking. Orders: Orders OT Evaluation and Treatment 01/04/25 M25.642 - Stiffness of left hand, not elsewhere classified, M65.949 - Unspecified synovitis and tenosynovitis, unspecified hand Coding Level of Care Code Est Pt Level 4 (44689) Diagnoses Tenosynovitis of finger M65.949 Stiffness of finger joint of left hand M25.642
--- OUTSIDE RECORDS SUMMARY | 2025-01-04 18:39 | XMS_ITS | Clinical Summary ---
Author Organization [employer] Address [address] [place] [address] [address] [place] [address] Care Team Providers Care Plug Drill Operator Name Role Phone PcpAri Unassigned Primary Care [...] 1 TABLET BY MOUTH ONCE DAILY. TAKE 11944 MCG FOR TOTAL DAILY DOSE OF 225 [...] 06/26/2023 Chorioretinal scar of right eye 06/26/2023 Immunizations Immunization Administration Dates Next Due INFLUENZA VACCINE QUADRIVALE [...] PM EDT Pulse - - Temperature 36.3 C (97.4 F) 07/30/2022 2:55 PM EDT Respiratory Rate - - Oxygen Saturation - - Inhaled Oxygen Concentration - - Weight - - Height - - Body Mass Index - - Plan of Treatment Health Maintenance Due Date Last Done Comments CT Colonography 1972 Colonoscopy 1972 Colorectal Cancer Screening 1972 Depression Screening 1972 Diabetes: Hemoglobin A1C 1972 FIT DNA/Cologuard 1972 FIT 1972 FOBT 1972 HIV Screening 1972 Lipid Panel 1972 SDOH Screening 1972 Sigmoidoscopy 1972 Disability Screening 1972 Diabetes: Foot Exam 1982 Alcohol/Substance Use Screening 1984 Family Planning (PISQ) 10/13/1987 Hepatitis C Screening 1990 Diabetes: Urine Protein Screening 10/13/1991 Hepatitis B Vaccines (1 of 3 - 19+ 3-dose series) 10/13/1991 Pap Smear 1993 Cervical Cancer Screening 2002 HPV/Cotest 2002 Pneumococcal Vaccine: 50+ Years (2 of 2 - PCV) 11/13/2008 11/14/2007 Mammogram 2012 Dental Oral Exam 07/06/2020 01/06/2020 Dental Prophylaxis 11/02/2021 05/04/2021, 01/06/2020 Dental X-Ray: Bitewings 05/05/2022 05/04/2021, 01/05 Dental X-Ray: Full Mouth 01/06/2023 01/06/2020 COVID-19 Vaccine ( season) 2024 01/20/2022, 04/04/2021, 09/21/2020, Additional history exists Influenza Vaccine (#1) 2024 , 05/01/2023, 05/01/2023, Additional history exists Tobacco Screening 06/30/2025 06/30/2024 Eye Exam 08/31/2026 08/31/2024, 08/19, 08/31/2024, Additional history exists DTaP/Tdap/Td Vaccines (2 - Td or Tdap) 06/04/2032 06/04/2022, 12/22/2008 RSV Patients and Patients Aged 60 years or older (1 - 1-dose 75+ series) 10/13/2047 Zoster Vaccines Completed 11/25/2023, 07/12/2023 HIB Vaccines Aged Out No longer eligi ble based on patient's age to complete this topic HPV Vaccines Aged Out No longer eligi ble based on patient's age to complete this topic Hepatitis A Vaccines Aged Out No long er eligible based on patient's age to complete this topic IPV Vaccines Aged Out No longer eligi ble based on patient's age to complete this topic Meningococcal B Vaccine Aged Out No l onger eligible based on patient's age to complete [...] Most Recently Relevant to Health Maintenance Insurance [facility] ONE CARE < 65 [facility] ONE CARE < 65 Care Teams Plug Drill Operator Relationship Specialty Start Date End Date Ari Marina Unassigned PCP - General Family Medicine 08/19/22
--- OUTSIDE RECORDS SUMMARY | 2025-01-04 18:39 | XMS_ITS | Encounter Summary ---
Author Organization [facility] Address [address] [place] [address] [address] [place] [address] Care Team Providers Care Mid Level Project Manager Name Role Phone Ari Marina Unassigned Primary [...] on filedocumented in this encounter Care Teams Mid Level Project Manager Relationship Specialty Start Date End Date Ari Marinasscleo PCP - General Family Medicine 08/19/22 documented as of this encounter
--- OUTSIDE RECORDS SUMMARY | 2025-01-04 18:39 | XMS_ITS | Clinical Summary ---
Author Organization [facility] Address [address] [place] [address] Care Team Providers Care Web Database Developer Name Role Phone Michael Greene Primary Care Provider [phone] Allergies Active Allergy Reactions Criticality Noted Date [...] Health Maintenance Due Date Last Done Comments Cologuard 1972 Colon Cancer Screening 1972 Colonoscopy 1972 FOBT / Fit Test 1972 HIV Screening 1972 Sigmoidoscopy 1972 Hepatitis B Vaccines (1 of 3 - 19+ 3-dose series) 10/13/1991 DTaP,Tdap,and Td Vaccines (1 - Tdap) 1994 CT Lung Cancer Screening (Baseline) 2022 Pneumococcal Vaccine: 50+ Ye ars (1 of 1 - PCV) 2022 Zoster Vaccines (1 of 2) 2022 Alcohol/Substance Use Screening 04/21/2024 COVID-19 Vaccine (1 - 2023- season) 2024 Influenza Vaccine (#1) 2024 02/11/2020, 2017 RSV Vaccine (60+ years old a nd patients) (1 - 1-dose 75+ series) 10/13/2047 Insurance MEDICARE [facility] Care Teams Web Database Developer Relationship Specialty Start Date End Date Michael Greene [address] [place] [id number] PCP - General Internal Medicine 08/11/20
--- OUTSIDE RECORDS SUMMARY | 2025-01-04 18:40 | XMS_ITS | Clinical Summary ---
Author Organization [facility] Address [address] [facility] [address] [place] [address] Phone Care Team Providers Care Insurance Underwriting Assistant Name Role Phone Michael Greene MD Primary Care Provider [phone] Allergies Active Allergy Reactions Criticality Noted Date Comments Latex Rash Low 08/17/2020 Sulfa (Sulfonamide Antibiotics) Anaphylaxis High Medications gabapentin (NEURONTIN) 300 MG capsule TAKE 2 CAPSULES BY MOUTH EVERY MORNING, TAKE 2 CAPSULES BY MOUTH AT LUNCH TIME, AND TAKE 3 CAPSULES BY MOUTH AT BEDTIME 210 capsule 1 8 Active gabapentin (NEURONTIN) 300 MG capsule 1 capsule Orally 2 caps in the am and lunch time 3 caps at bedtime Active omeprazole (PRILOSEC) 40 MG capsule Take 1 capsule by mouth daily. Active DULoxetine (CYMBALTA) 30 MG capsule 1 capsule, 2 at night Orally as directed Active indomethacin (INDOCIN) 50 MG capsule Take 1 capsule by mouth as needed. with food or milk Active nabumetone (RELAFEN) 500 MG tablet Take 1 tablet by mouth 2 (two) times a day. Active baclofen (LIORESAL) 20 MG tablet Take 1 tablet by mouth every 8 (eight) hours. with food or milk 7 Active diclofenac sodium (VOLTAREN) 1 % Gel Externally Active levothyroxine (SYNTHROID, LEVOTHROID) 200 MCG tablet Take 1 tablet by mouth daily. Active cholecalciferol , vitamin D3, 25 mcg (1,000 unit) capsule TAKE 1 CAPSULE BY MOUTH ONCE DAILY WITH FOOD FOR 90 DAYS 1 Active cetirizine (ZYRTEC) 10 MG tablet Take 10 mg by mouth daily. 1 Active metFORMIN (GLUCOPHAGE-XR) 500 MG 24 hr tablet Take 500 mg by mouth daily. 1 Active traMADoL (ULTRAM) 50 mg tablet TAKE 2 TABLETS BY MOUTH EVERY 12 HOURS FOR 28 DAYS FOR SEVERE ARTHRITIS PAIN 1 Active DULoxetine (CYMBALTA) 60 MG capsule TAKE 1 CAPSULE BY MOUTH ONCE DAILY 60 MG IN THE MORNING AND 30 MG AT BEDTIME 1 Active gabapentin (NEURONTIN) 300 MG capsule TAKE 2 CAPSULES BY MOUTH THREE TIMES DAILY FOR 30 DAYS 1 Active levothyroxine (SYNTHROID, LEVOTHROID) 200 MCG tablet TAKE 1 TABLET BY MOUTH ONCE DAILY FRIDAY THROUGH FRIDAY AND 2 TABLETS ON FRIDAY NEEDS LABWORK DRAWN 0 Active fluticasone propionate (FLONASE) 50 mcg/actuation nasal spray 1 spray by Nasal route daily. 15.8 mL 2 Active Social History Tobacco Use Types Packs/Day [...] Orientation Straight 09/21/2019 12 :55 PM EDT Last Filed Vital Signs Vital Sign Reading Time Taken Comments Blood Pressure 142/79 06/03/2021 7:29 PM EST Pulse 84 06/03/2021 7:29 PM EST Temperature 36.4 C (97.5 F) 06/03/2021 7:29 PM EST Respiratory Rate 16 06/03/2021 7:29 PM EST Oxygen Saturation 97% 06/03/2021 7:29 PM EST Inhaled Oxygen Concentration - - Weight 145.2 kg (320 lb) 11/26/2020 4:26 PM EDT Height 160 cm (5' 3 ) 06/03/2021 8:41 PM EST Body Mass Index 56.69 11/26/2020 4:26 PM EDT Plan of Treatment Health Maintenance Due Date Last Done Comments CREATININE LEVEL 1972 LIPID PANEL 1972 TSH LEVEL 1972 DEPRESSION SCREENING 1984 HEPATITIS C SCREENING 1990 HIV ONE-TIME SCREENING (18-65 YEARS) 1990 PAP SMEAR 1993 MAMMOGRAM 2012 COLOGUARD 2017 COLONOSCOPY 2017 COLORECTAL CANCER SCREENING 2017 FIT TEST 2017 FOBT 2017 SIGMOIDOSCOPY 2017 VIRTUAL COLONOSCOPY 2017 Adult Td,Tdap Booster 12/22/2018 12/22/2008 PNEUMOCOCCAL VACCINES (50+ years) (2 of 2 - PCV) 2022 11/14/2007 ZOSTER VACCINES (1 of 2) 2022 COVID-19 VACCINE (4 - season) 2023 04/04/2021, 09/21/2020, 08/21/2020 INFLUENZA VACCINE (#1) 2024 , 02/19/2019, 02/10/2018, Additional history exists SMOKING STATUS SCREENING (Once After 26 Yrs) Completed 11/26/2020 HEPATITIS A VACCINES Aged Out No long er eligible based on patient's age to complete this topic HIB VACCINES Aged Out No longer eligi ble based on patient's age to complete this topic MENINGOCOCCAL VACCINES (ACWY) Aged Out No longer eligible based on patient's age to complete this topic MENINGOCOCCAL VACCINES (B) Aged Out N o longer eligible based on patient's age to complete this topic Medical Devices Not on file Insurance [place] B Member Subscriber Plan / Payer ( fective 2020-) Name:Britt Maritns Member ID:[id number] Relation to Subscriber:Self Name:Britt Martins Subscriber ID:[id number] Payer ID:[id number] Group ID:Not on file Type:Medicare Address: [facility] [email or web address] [facility] [address] [place] [address] [place] B Member Subscriber Plan / Payer (Ef fective 2020-Present) Name:Britt Martins Member ID:[id number] Relation to Subscriber:Self Name:Britt Martins Subscriber ID:[id number] Payer ID:[id number] Group ID:Not on file Type:Medicare Address: [facility] [email or web address] [facility] [address] [place] [address] [place] & B HEALTH MEDICARE PART A & B [place] B MEDICARE PART A & B Care Teams Insurance Underwriting Assistant Relationship Specialty Start Date End Date Michael Greene MD [address] [place] [address] PCP - General Internal Medicine 09/21/19 Additional Source Comments The information contained in this document represents components of the legal health record. It is not the complete legal health record.[facility]
== END 2025-01-04 15:41 | disposition home or self-care (01) ==
LOC: HO.HOS 15:07
DX: M65.949 Unspecified synovitis and tenosynovitis, unspecified hand (principal); M25.642 Stiffness of left hand, not elsewhere classified
CPT/HCPCS: 99214

== ENCOUNTER → 2025-01-04 15:06 | Outpatient (BNVA) | payer OTHER, SELFPAY | DX: M65.942 Unspecified synovitis and tenosynovitis, left hand (principal); M25.642 Stiffness of left hand, not elsewhere classified | CPT/HCPCS: 99212 ==

== ENCOUNTER 2025-03-28 08:28 | Outpatient (REF) | payer OTHER, SELFPAY ==
--- NOTE | ~2025-03-28 | XR_ITS ---
EXAMINATION: XR KNEE 3 VIEWS BILATERAL HISTORY: Bilateral knee pain COMPARISON: There are no prior studies available for comparison. FINDINGS: Standing AP views of both knees and additional lateral and sunrise patellar views of the bilateral knees are submitted. Osseous mineralization is normal. There is no fracture or dislocation. There is severe osteoarthritis of the medial compartments of both knees with joint space narrowing and osteophyte formation. There is mild to moderate osteoarthritis of the lateral and patellofemoral compartments. The soft tissues are unremarkable. There is no joint effusion. XR/XR Knee Luis Enrique 3V IMPRESSION: Osteoarthritis of the bilateral knees as described. Electronically signed by: Amadou Truong MD 03/28/2025 02:50 PM [facility]
== END 2025-03-28 08:29 | disposition home or self-care (01) ==
LOC: HO.HOSX 08:28
DX: M17.0 Bilateral primary osteoarthritis of knee (principal)
CPT/HCPCS: 73562

== ENCOUNTER 2025-03-28 14:28 | Outpatient (AMB) | payer OTHER, SELFPAY ==
--- OUTSIDE RECORDS SUMMARY | 2020-11-26 15:45 | XMS_ITS | Encounter Summary ---
Author Organization [facility] Address [address] [place] [address] [place] [address] Phone Care Team Providers Care Echocardiologist Name Role Phone Nathan, Venessa Terry MD Unavailable [phone] Bianca Best MD Unavailable Nam Logan MD Unavailable Michael Greene MD Primary Care Provider [phone] Encounter Details Date Type Department Care Team (Late st Contact Info) Description 11/26/2020 4:45 PM EDT Hospital Encounter [facility] [address] [place] [address] Megan Cabrera, BUILDING ASSOCIATE [address] [place] [address] [email or web address] Social History Tobacco Use Types Packs/Day Years Used Date Smoking Tobacco: Never Smokeless Tobacco: Never Alcohol Use Standard Drinks/Week Comments Yes 0 (1 standard drink = 0.6 oz pur e alcohol) Education Answer Date Recorded Are you interested in more education? Not on kaylene e 08/16/2022 Are you concerned about learning? Not on file 08/16/2022 No 08/16/2022 No 08/16/2022 Digital Access Answer Date Recorded No 09/16/2022 No 09/16/2022 Reliable internet access at home? Not on file 09/16/2022 Device with a working camera? Not on file Comments Unknown Sex and Gender Information Value Date Recorded Sex Assigned at Female 09/21/2019 12:55 PM EDT Legal Sex Female 8:10 PM EST Gender Identity Female 09/21/2019 12:55 PM EDT Sexual Orientation Straight 09/21/2019 12 :55 PM EDT documented as of this encounter Plan of Treatment Not on file documented as of this encounter Procedures Procedure Name Priority Date/Time Associated Diagnosis Comments XR KNEE 4 OR MORE VIEWS (RIGHT) Routine 11/26/2020 4:59 PM EDT Instability of right knee joint documented in this encounter Results * XR KNEE 4 OR MORE VIEWS (RIGHT) (11/26/2020 4:59 PM EDT) Anatomical Region Laterality Modality Knee Right Computed Radiogr aphy 11/26/2020 5:27 PM EDT Impressions 11/26/2020 5:30 PM EDT No acute fracture or dislocation. Narrative 11/26/2020 5:30 PM EDT XR KNEE 4 OR MORE VIEWS (RIGHT) COMPARISON: January 09, 2017 FINDINGS: Right Knee: No acute fracture. Normal alignment. Mild medial tibiofemoral joint space narrowing with associated tricompartmental marginal osteophytes, progressed since 2017. No effusion. Procedure Note Maylin Murdock MD - 11/26/2020 XR KNEE 4 OR MORE VIEWS (RIGHT) COMPARISON: January 09, 2017 FINDINGS: Right Knee: No acute fracture. Normal alignment. Mild medial tibiofemoraljoint space narrowing with associated tricompartmental marginalosteophytes, progressed since 2017. No effusion. IMPRESSION: No acute fracture or dislocation. us Meagn Cabrera BUILDING ASSOCIATE IMG XR LOWER EXTREMITY Fi nal Result documented in this encounter Visit Diagnoses Not on filedocumented in this encounter Care Teams Echocardiologist Relationship Specialty Start Date End Date Michael Greene MD [address] [place] [address] PCP - General Internal Medicine 09/21/19 Venessa Evans MD [address] [place] [address] Historical LMR Provider 02/08/17 2 Bianca Best MD [address] [facility], [address] [place] [address] Historical LMR Provider 02/08/1704/28 Nam Logan MD [address] [facility]nd [place] [address] Historical LMR Provider 02/08/17 04/28/21 documented as of this encounter Additional Source Comments The information contained in this document represents components of the legal health record. It is not the complete legal health record.[facility]
--- OUTSIDE RECORDS SUMMARY | 2024-03-29 11:28 | XMS_ITS ---
Author Organization - [facility] Address [address] [place] [address] Care Team Providers Care Spindle Repairer Name Role Phone Patricia Castro Unavailable [phone] Mando Cabrera Unavailable [phone] REASON FOR VISIT *Wellness Visit Encounters Encounter Location Date Provider Diagnosis - [facility] [address] [place] [address] 03/29/2024 Mando Cabrera Plan Of Treatment No Information Progress Notes * Britt GALEANODOB:[birth year] (54 yo F)Acc No.[id number]:03/29/2024 Patient: Alyssa MONTOYAnifer Provider: Mirna Cabrera NP :1970 A ge:53 Y S ex:Female Date:03/29/2024 Address:[address] [place], [place] [id number] Subjective: * Chief Complaints: * 1 . *Wellness Visit. * Medical History: Objective: * Vitals: Assessment: Plan: * Treatment: * Billing Information: * Visit Code: * Procedure Codes: * Electronic signature of Catherine Cabrera NP on 03/28/2025 at 11:32 PM EST Sign off status: Pending * Provider: Mirna Cabrera NP Date: 05/30/2023 Generated for Steff will/Wade/eTransmitting on: 05/29/2024 11:32 PM EST
--- OUTSIDE RECORDS SUMMARY | 2024-04-29 11:16 | XMS_ITS ---
Author Organization - [facility] Address [address] [place] [address] Care Team Providers Care Warehouse Unloader Name Role Phone Patricia Castro Unavailable [phone] Mando Cabrera Unavailable [phone] REASON FOR VISIT *Wellness Visit Encounters Encounter Location Date Provider Diagnosis - [facility] [address] [place] [address] 04/29/2024 Mando Cabrera Assessments Encounter Date Diagnosis (ICD Code) Assessment Notes Treatment Notes Treatment Clinical Notes Section Notes 04/29/2024 Summary o f call goes here _. Plan Of Treatment No Information Procedure Notes * Category Sub-Category Detail Notes Monthly Visit Additional Actions Dash Updated: . Warm Transferred to: . eCW Action Created: . Pending Actions Reviewed: , Wellness Education Wellness Education April is Healthy Weight Awareness ! Being physically active is an important part of your health and overall well-being. People who are inactive can improve their health by adding physical activity on a regular basis along with healthy eating habits. It is important that if you are increasing your level of physical activity, you should talk to your healthcare provider first to make sure there isn't a need for any restrictions. Here are some identified benefits of a regular exercise program: -Weight Control -Reduced risk for DM II or reduced risk for DM II complications if already diagnosed -Reduced risk for cardiovascular disease or reduced risk for complications if already diagnosed -Strengthened bones and muscles reducing risk for falls or fall-related injuries -Improved mood and mental health -Reduced risk for certain cancers Here are some ways to make daily physical activity a healthy habit: Get moving first thing in the morning before your day gets filled up with other things. Find a partner. Committing to exercise with another person will increase the likelihood of success. Find activities you enjoy. You will be more likely to stick to it. Use a step counter or a health bk on your Smartphone to track your progress and celebrate your wins! Progress Notes * Britt GALEANODOB:[birth year] (54 yo F)Acc No.[id number]:04/29/2024 Patient: Britt MONTOYA Provider: Mirna Cabrera NP :1970 A ge:53 Y S ex:Female Date:04/29/2024 Address:[address] [place] [address], [id number] Subjective: * Chief Complaints: * 1 . *Wellness Visit. * HPI: * *Visit Details: Visit Details P atient/Member Location . V isit Participants . M ember Updates: Community Providers P CP information confirmed and updated in Dash as needed. . P harmacy confirmed and updated in eCW Info/Dash as needed . Fall Assessment H as member had a fall since last contact??. Utilization H as member had a stand alone ER visit since last contact? . H as member had an admission to the hospital since last contact? . RPM D oes member have RPM device? . E ngagement: Biannual Scheduling I s member due for Biannual Visit? . * Medical History: Objective: * Vitals: Assessment: * Assessment: Summary of call goes here _. Plan: * Treatment: * Procedures: * *Monthly Visit: Additional Actions D basilio Updated . W arm Transferred to . e CW Action Created . P ending Actions Reviewed , Keron ta Education: Wellness Education J anuary is Healthy Weight Awareness Month! Being physically active is an important part of your health and overall well-being. People who are inactive can improve their health by adding physical activity on a regular basis along with healthy eating habits. It is important that if you are increasing your level of physical activity, you should talk to your healthcare provider first to make sure there isn't a need for any restrictions. Here are some identified benefits of a regular exercise program: -Weight Control -Reduced risk for DM II or reduced risk for DM II complications if already diagnosed -Reduced risk for cardiovascular disease or reduced risk for complications if already diagnosed -Strengthened bones and muscles reducing risk for falls or fall-related injuries -Improved mood and mental health -Reduced risk for certain cancers Here are some ways to make daily physical activity a healthy habit: Get moving first thing in the morning before your day gets filled up with other things. Find a partner. Committing to exercise with another person will increase the likelihood of success. Find activities you enjoy. You will be more likely to stick to it. Use a step counter or a health bk on your Smartphone to track your progress and celebrate your wins!. * Billing Information: * Visit Code: * Procedure Codes: * Electronic signature of Catherine Cabrera NP on 03/28/2025 at 11:32 PM EST Sign off status: Pending * Provider: Mirna Cabrera NP Date: 0 04/29/2024 Generated for Steff will/Wade/Abhishek on: 1 05/29/2024 11:32 PM EST History and Physical Notes * HPI (History of Present Illness) Category Sub-Category Detail Notes Category Not es Engagement Biannual Scheduling Is member ivan e for Biannual Visit?: . Member Updates Community Providers PCP informat ion confirmed and updated in Dash as needed.: . Pharmacy confirmed and updated in eCW In fo/Dash as needed: . Fall Assessment Has member had a fall since last contact?: . Utilization Has member had a stand alone ER visit since last contact?: . Has member had an admission to the [facility] since last contact?: . RPM Does member have RPM device?: . Visit Details Visit Details Patient/Member Location: . Visit Participants: .
--- OUTSIDE RECORDS SUMMARY | 2024-05-28 04:10 | XMS_ITS ---
Author Organization - [facility] Address [address] [place] [address] Care Team Providers Care Process Area Supervisor Name Role Phone Patricia Castro Unavailable Mando Cabrera Unavailable [phone] REASON FOR VISIT *Care Plan Update Encounters Encounter Location Date Provider Diagnosis - [facility] [address] [place] [address] 05/28/2024 Mando Cabrera Assessments Encounter Date Diagnosis (ICD Code) Assessment Notes Treatment Notes Treatment Clinical Notes Section Notes 05/28/2024 SBAR /SOA P goes here _. Plan Of Treatment No Information Procedure Notes * Category Sub-Category Detail Notes Visit Information Net Promoter Score Please stat e a number 0-10 on the likeliness of you recommending our program to friends or family if they needed our support? 0 being not at all and 10 being most likely.: . RN Interventions RN CCM Interventions Updated Care P fadi: Yes Reviewed Health Armored Car Guard Recommendations/In terventions: . Were Medications Reconciled?: . Did member require escalation?: . Does member require Care Team Collaborat ion?: . Pending Actions Reviewed: , Completed Actions Reviewed: . Additional Interventions: . Recommendations for Next Visit . License Verification Did you verify that you are licensed to practice in the member's state?: . Progress Notes * Britt GALEANODOB:[birth year] (54 yo F)Acc No.[id number]:05/28/2024 Care Plan Update Patient: Britt MONTOYA Provider: Mirna Cabrera NP :1970 A ge:53 Y S ex:Female Date:05/28/2024 Address:[address] [place], [id number] Subjective: * Chief Complaints: * 1 . *Care Plan Update. * HPI: * *Visit Details: Visit Details P atient/Member Location . V isit Participants . M mee Updates: Present at Visit S poke with . Community Providers P CP information confirmed and updated in Dash as needed. . P harmacy confirmed and updated in eCW Info/Dash as needed . Member Information C ontact Preference confirmed and up dated in Dash if needed . S elf-Directing? . Current Services D oes member receive Community or Home-Based Services? . Fall Assessment H as member had a fall since last contact??. Utilization H as member had a stand alone ER visit since last contact? . H as member had an admission to the hospital since last contact? . Change in Condition A ny changes in ADL's or IADL's since last contact? . Medication Updates A ny changes in medications since last contact? ( only if onboarding in past 4 weeks, otherwise full medication review required). All meds should have a dose, frequency, route, and reason for taking. RPM D oes member have RPM device? . DME D oes member use DME? . E ngagement: Biannual Scheduling I s member due for Biannual Visit? . * Medical History: Objective: * Vitals: Assessment: * Assessment: SBAR /SOAP goes here _. Plan: * Treatment: * Procedures: V isit Information: Net Promoter Score P lease state a number 0-10 on the likeliness of you recommending our program to friends or family if they needed our support? 0 being not at all and 10 being most likely. . * *RN Interventions: RN CCM Interventions U pdated Care Plan Y es [facility] [employer] Recommendations/Interventions . W ere Medications Reconciled? . D id member require escalation? . D oes member require Care Team Collaboration??. P ending Actions Reviewed , C ompleted Actions Reviewed . A dditional Interventions . Recommendations for Next Visit . . License Verification D id you verify that you are licensed to practice in the member's state? . Care Plan: * Problems: * Billing Information: Care Plan Details* * Electronic signature of Catherine Cabrera NP on 03/28/2025 at 11:34 PM EST Sign off status: Pending * Provider: Mirna Cabrera NP Date: 0 05/28/2024 Generated for Steff will/Wade/Abhishek on: 1 05/29/2024 11:34 PM EST History and Physical Notes * HPI (History of Present Illness) Category Sub-Category Detail Notes Category Not es Engagement Biannual Scheduling Is member du e for Biannual Visit?: . Member Updates Present at Visit Spoke with: . Community Providers PCP information confirmed an d updated in Dash as needed.: . Pharmacy confirmed and updated in eCW In fo/Dash as needed: . Member Information Contact Preference confirmed and up dated in Dash if needed: . Self-Directing?: . Current Services Does member receive Community o r Home-Based Services?: . Fall Assessment Has member had a fall since last contact?: . Utilization Has member had a stand alone ER visit since last contact?: . Has member had an admission to the [facility] since last contact?: . Change in Condition Any changes in ADL's or IADL's since last contact?: . Medication Updates Any changes in medic ations since last contact?: (only if onboarding in past 4 weeks, otherwise full medication review required). All meds should have a dose, frequency, route, and reason for taking. RPM Does member have RPM device?: . DME Does member use DME?: . Visit Details Visit Details Patient/Member Location: . Visit Participants: .
--- OUTSIDE RECORDS SUMMARY | 2024-09-09 11:12 | XMS_ITS ---
Author Organization - [facility] Address [address] [place] [address] Care Team Providers Care Timber Treatment Plant Operator Name Role Phone Patricia Castro Unavailable [phone] Fiorella Sanchez Unavailable [phone] REASON FOR VISIT *Wellness Visit Encounters Encounter Location Date Provider Diagnosis - [facility] [address] [place] [address] 09/09/2024 Fiorella Sanchez Plan Of Treatment No Information Progress Notes * Britt GALEANODOB:[birth year] (54 yo F)Acc No.[id number]:09/09/2024 Patient: Britt MONTOYA Provider: Marlyn Sanchez NP :1970 A ge:53 Y S ex:Female Date:09/09/2024 Address:[address] [place] [address] [id number] Subjective: * Chief Complaints: * 1 . *Wellness Visit. * Medical History: Objective: * Vitals: Assessment: Plan: * Treatment: * Billing Information: * Visit Code: * Procedure Codes: * Electronic signature of Karl Sanchez NP on 03/28/2025 at 11:33 PM EST Sign off status: Pending * Provider: Marlyn Sanchez NP Date: 0 09/09/2024 Generated for Steff will/Wade/eTransmitting on: 1 05/29/2024 11:33 PM EST
[2025-03-28 14:30] VITALS: BMI 53.9
--- NOTE | 2025-03-28 14:30 | MHC.OFFVIS ---
Vital Signs 03/28/25 14:30 Height 5 ft 4 in Weight 314 lb BMI 53.9 Intake Visit Reasons: New prob-Bilat knee pain Intake Note: Britt is a 54 year old female who presents today for a New Problem Visit complaining of Bilateral Knee Pain. Patient reports her pain began around 2017 after working for as a [employer]IVE for 30+ years. She explains her right knee is more bothersome, primarily on the medial aspect of the knee. She states she cannot walk very far or stand longer than 20 minutes. She also has trouble bending down and using stairs. She has tried cortisone injections on her right knee without relief, last one done 2018 through a previous orthopedist. She is currently taking Tramadol for pain for other arthritis problems. She has tried Physical Therapy, last done about 6 years ago. She denies any known injuries or surgeries to the knees. Patient has a history Lymphadema and Lyme Disease. Allergies latex (LATEX) Allergy (Mild, Verified 03/28/25 14:31) RASH Sulfa (Sulfonamide Antibiotics) (SULFA (SULFONAMIDE ANTIBIOTICS)) Allergy (Unknown, Verified 03/28/25 14:31) ANAPHYLAXIS HPI HPI New prob-Bilat knee pain: Details: Britt is a 54 year old female who presents today for a New Problem Visit complaining of Bilateral Knee Pain. Patient reports her pain began around 2017 after working for as a [employer]PRES[employer]IVE for 30+ years. She explains her right knee is more bothersome, primarily on the medial aspect of the knee. She states she cannot walk very far or stand longer than 20 minutes. She also has trouble bending down and using stairs. She has tried cortisone injections on her right knee without relief, last one done 2018 through a previous orthopedist. She is currently taking Tramadol for pain for other arthritis problems. She has tried Physical Therapy, last done about 6 years ago. She denies any known injuries or surgeries to the knees. Patient has a history Lymphadema and Lyme Disease. Patient states that she was advised that it is likely that surgical intervention is her best bet for pain relief, however weight loss was advised at that point, as they did not feel they could perform surgery at that time. Patient has never tried gel injections before. FOR[facility]LY [facility], [facility] Medical History Gastric peptic ulcer Pancreatitis Gastroparesis Lyme disease Surgical History History of laparoscopic cholecystectomy Hx of neck surgery Hx of colonoscopy History of tonsillectomy and adenoidectomy Family History Mother No problems noted. Father No problems noted. Brother No problems noted. Sister No problems noted. Sister No problems noted. Sister No problems noted. Social History (Updated 03/28/25 @ 14:48 by JOSHUA Oliver) Alcohol intake: current Alcohol intake frequency: holidays/special occasions only Patient Tobacco Use Status: Former Tobacco user Current occupational status: disabled Current occupation: rt handed Physical Exam Vital Signs: BMI result Body Mass Index 53.9 Extrem Other: On inspection, there is no visible deformity of bilateral knees No edema, erythema, ecchymosis noted No lacerations, abrasions, open areas No evidence of infection Patient reports tenderness to palpation of bilateral medial joint lines No further tenderness to palpation of bilateral knees noted Patient is able to extend the bilateral knees to approximately 10 degrees, can flex the right knee to approximately 90 degrees in the left knee to approximately 100 degrees No ligamentous laxity noted Distal sensation intact Capillary refill brisk Negative Jeremy's Results Reviewed Results Reviewed: X-rays obtained in the office today and independently reviewed by me, Cash Sierra PA-C, demonstrate moderate to severe osteoarthritis of the medial compartments of bilateral knees. Assessment & Plan Assessment & Plan (1) Osteoarthritis of both knees: Code(s): M17.0 - Bilateral primary osteoarthritis of knee Category: Medical Plan 1. Osteoarthritis of bilateral knees Patient is educated about this condition Patient is educated about the treatment options available At this time, due to the fact that the patient has already tried physical therapy and steroid injections without relief, I feel it is best to request authorization for gel injections at this point Patient is also advised on weight loss methods, and is advised that weight loss would be necessary for any further intervention, particularly total joint arthroplasty Patient will follow-up after we obtain authorization for gel injections, sooner with any acute concerns Orders: Orders XR Knee Lius Enrique 3V Today M25.569 - Pain in unspecified knee Coding Level of Care Code Est Pt Level 3 (18160) Diagnoses Osteoarthritis of both knees M17.0
--- OUTSIDE RECORDS SUMMARY | 2025-03-28 23:32 | XMS_ITS | Encounter Summary ---
Author Organization [facility] [employer] Address [address] [place] [address] 7 [place] [address] Care Team Providers Care Food Handler Name Role Phone PcpAri Unassigned Primary Care Provider U navailable Encounter [...] as of this encounter Plan of Treatment Upcoming Encounters Date Type Department Care Team (Late st Contact Info) Description 04/05/2025 12:00 PM EST Office Visit [place] [facility] OPT[facility]RY [address] [place] [address] Wicho Freeman OD [address] [place] [address] documented as of this encounter Visit Diagnoses Not on filedocumented in this encounter Care Teams Food Handler Relationship Specialty Start Date End Date PcpArisscleo PCP - General Family Medicine 08/19/22 03/24/25 documented as of this encounter
--- OUTSIDE RECORDS SUMMARY | 2025-03-28 23:32 | XMS_ITS | Clinical Summary ---
Author Organization [facility] Address [address] [facility] [address] [place] [id number] Phone Care Team Providers Care Nuclear Logging Engineer Name Role Phone Michael Greene MD Primary Care Provider [phone] Allergies Active Allergy Reactions Criticality Noted Date [...] 11/14/2007 ZOSTER VACCINES (1 of 2) 2022 INFLUENZA VACCINE (#1) 2024 , 02/19/2019, 02/10/2018, Additional history exists COVID-19 VACCINE (2024- season) 2024 04/04/2021, 09/21/2020, 08/21/2020 RSV VACCINE (1 - 1-dose 75+ series) 10/13/2047 SMOKING STATUS SCREENING (Once After 26 Yrs) [...] [place] [facility] [place] & B [address] [place] [id number] [place] PART A & B [address] [place] [id number] [place] & B MEDICARE PART A & B Care Teams Nuclear Logging Engineer Relationship Specialty Start Date End Date Michael Greene MD [address] [place] [phone] PCP - General Internal Medicine 09/21/19 Additional Source Comments The information contained in this document represents components of the legal health record. It is not the complete legal health record.[facility]
--- OUTSIDE RECORDS SUMMARY | 2025-03-28 23:33 | XMS_ITS | Clinical Summary ---
Author Organization [facility] [employer] Address [address] [place] [address] [address] [place] [address] Care Team Providers Care Sport Internship Name Role Phone Unavailable Primary Care Provider Unavailabl e Allergies Active Allergy Reactions Criticality Noted Date [...] DAILY FOR 6 DAYS AND ON THE DAY, TAKE 2 TABLETS. TAKE ON AN EMPTY STOMACH. AVOID ANTACIS, CALCIUM OR IRON FOR AT LEAST 4 HOURS BEFORE OR 4 HOURS AFTER 3 Active levothyroxine (Synthroid, Levoxyl) 25 MCG tablet TAKE 1 TABLET BY MOUTH ONCE DAILY. TAKE 83061 MCG FOR TOTAL DAILY DOSE OF 225 [...] CHOICE PO) Take by mouth. Acti ve latanoprost (Xalatan) 0.005 % ophthalmic solution Administer 1 drop into both eyes at bedtime. 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 Overview (06/26/2023): DX PMR 09/04 PCOS (polycystic ovarian syndrome) 06/26/2023 Controlled type 2 diabetes m ellitus without complication, without long-term current use of insulin 06/26/2023 Glaucoma suspect of both eyes 06/26/2023 Chorioretinal scar of right eye 06/26/2023 Encounters Date Type Department Care Team Description 03/01/2025 11:30 AM EST Office Visit [facility] OPTOMETRY [address] [place] [address] Wicho Freeman, OD Ocular hypertension, bilateral (Primary Dx) 01/26/2025 11:00 AM EDT Office Visit [facility] OPTOMETRY [address] [place] [address] Wicho Freeman, OD Glaucoma suspect of both eyes (Primary Dx); Ocular hypertension, bilateral from Last 3 Months Immunizations Immunization Administration Dates Next Due INFLUENZA [...] Description 04/05/2025 12:00 PM EST Office Visit [place] [facility] [facility] [address] [place] [address] Wicho Freeman, DANIEL [address] [place] [address] Health Maintenance Due Date Last Done Comments [...] exists Tobacco Screening 06/30/2025 06/30/2024 Eye Exam 03/01/2027 03/01/2025, 02/19, 03/01/2025, Additional history exists DTaP/Tdap/Td Vaccines (2 - [...] Procedure Name Priority Date/Time Associated Diagnosis Comments FUNDUS PHOTOS - OU - BOTH EYES Routine 01/26/2025 Glaucoma suspect of both eyes OCT, OPTIC NERVE - OU - BOTH EYES Routine 01/26/2025 Glaucoma suspect of both eyes PROPHYLAXIS - ADULT Routine 05/04/2021 1 2:00 AM EST BITEWINGS - 4 RADIOGRAPHIC IMAGES Routine 05/04/2021 12:00 AM EST INTRAORAL - COMPLETE SERIES OF RADIOGRAPHIC IMAGES Routine 01/06/2020 12:00 AM EDT COMPREHENSIVE ORAL EVALUATION - NEW OR ESTABLISHED PATIENT Routine 01/06/2020 12:00 AM EDT from Last 3 Months or Most Recently Relevant to Health Maintenance Results * OCT, Optic Nerve - OU - Both Eyes (01/26/2025) Wicho Freeman OPHTH TOMOGRAPHY Final Result * (ABNORMAL) Fundus Photos - OU - Both Eyes (01/26/2025) Wicho Freeman OD OPHTH PHOTOGRAPHY Final Result from Last 3 Months Insurance [facility] < [address] [id number] DENTAL - [facility] [address] [place] [facility] [address] [place]
--- OUTSIDE RECORDS SUMMARY | 2025-03-28 23:33 | XMS_ITS | Clinical Summary ---
Author Organization [facility] Address [address] [place] [address] Care Team Providers Care [place] Seamer Name Role Phone Michael Greene Primary Care Provider [phone] Allergies Active Allergy Reactions Criticality Noted Date [...] DTaP,Tdap,and Td Vaccines (1 - Tdap) [address] Lung Cancer Screening (Baseline) 2022 Pneumococcal Vaccine: 50+ Ye ars (1 of 1 - PCV) 2022 Zoster Vaccines (1 of 2) 2022 Alcohol/Substance Use Screening 04/21/2024 Influenza Vaccine (#1) 2024 02/11/2020, 2017 COVID-19 Vaccine (1 - 2024- season) 2024 Insurance MEDICARE [facility] Care Teams [place] Seamer Relationship Specialty Start Date End Date Michael Greene [address] [place] [id number] PCP - General Internal Medicine 08/11/20
== END 2025-03-28 15:07 | disposition home or self-care (01) ==
LOC: HO.HOS 14:29
DX: M17.0 Bilateral primary osteoarthritis of knee (principal)
CPT/HCPCS: 99213

== ENCOUNTER → 2025-03-28 14:30 | Outpatient (BNV) | payer OTHER, SELFPAY | PROVIDERS: Visit Provider Radiology Diagnostic Radiology | DX: M17.0 Bilateral primary osteoarthritis of knee (principal) | CPT/HCPCS: 73562 ==